=== PATIENT | female | born 1965 | race Caucasian/White ===

== ENCOUNTER 2023-05-02 11:08 | Outpatient (OUT) | payer OTHER, SELFPAY ==
[2023-05-02 12:27] LABS: Basophils Absolute Auto 0.1 10^3/uL (0.0-0.1); Basophils Percent Auto 0.8 % (0.2-2.0); Eosinophils Absolute Auto 0.1 10^3/uL (0.0-0.7); Eosinophils Percent Auto 1.4 % (0.9-7.0); Hematocrit 42.1 % (36.0-48.0); Hemoglobin 13.7 g/dL (12.0-16.0); Immature Granulocytes Abs Auto 0.05 10^3/uL (0.00-0.03); Immature Granulocytes Pct Auto 0.7 % (0.0-0.5); Lymphocytes Absolute Auto 2.4 10^3/uL (1.2-3.8); Lymphocytes Percent Auto 33.5 % (20.5-60.0); Mean Corpuscular HGB Conc 32.5 g/dL (29.9-35.2); Mean Corpuscular Hemoglobin 32.9 pg (26.7-34.0); Mean Platelet Volume 10.5 fL (9.5-13.5); Monocytes Absolute Auto 0.6 10^3/uL (0.3-0.8); Monocytes Percent Auto 7.6 % (1.7-12.0); Neutrophils Absolute Auto 4.1 10^3/uL (1.4-6.5); Platelet Count 332 10^3/uL (150-450); Red Blood Count 4.17 10^6/uL (4.20-5.40); Red Cell Distribution Width 12.2 % (11.0-15.0); White Blood Count 7.3 10^3/uL (4.0-11.0)
[2023-05-02 13:15] LABS: Anion Gap 14.1; Carbon Dioxide 25.8 mmol/L (21.0-32.0); Chloride 102 mmol/L (98-107); Potassium 3.9 mmol/L (3.5-5.1); Sodium 138 mmol/L (136-145)
[2023-05-02 13:47] LABS: Alanine Aminotransferase 22 U/L (14-59); Albumin Globulin Ratio 0.9; Albumin Level 3.6 g/dL (3.4-5.0); Alkaline Phosphatase 71 U/L (46-116); Aspartate Amino Transferase 16 U/L (15-37); BUN Creatinine Ratio 13.8; Bilirubin Total 0.3 mg/dL (0.2-1.0); Calcium 9.2 mg/dL (8.5-10.1); Estimated GFR (African America >60 (>=60); Estimated GFR (Non-African Ame >60 (>=60); Globulin 3.8 g/dL; Glucose 89 mg/dL (74-106); Thyroid Stimulating Hormone 2.246 uIU/mL (0.358-3.740); Total Protein 7.4 g/dL (6.4-8.2)
[2023-05-02 14:21] LABS: Estimated Average Glucose 100 mg/dL; Glycohemoglobin A1C 5.1 % (4.5-6.2)
[2023-05-03 11:09] LABS: Insulin 11.5 uIU/mL (2.6-24.9)
== END 2023-05-02 11:09 | disposition home or self-care (01) ==
LOC: LAB 11:13
PROVIDERS: PCP Family Medicine; Visit Provider Family Medicine
DX: R82.90 Unspecified abnormal findings in urine (principal); K21.9 Gastro-esophageal reflux disease without esophagitis; R53.83 Other fatigue; R73.09 Other abnormal glucose; D64.9 Anemia, unspecified; E55.9 Vitamin D deficiency, unspecified
CPT/HCPCS: 36415; 80053; 82306; 83036; 83525; 83540; 84436; 84443; 84481; 85025

== ENCOUNTER 2024-05-10 07:40 | Outpatient (OUT) | payer OTHER, SELFPAY ==
[2024-05-10 08:08] LABS: Basophils Absolute Auto 0.1 10^3/uL (0.0-0.1); Basophils Percent Auto 0.9 % (0.2-2.0); Eosinophils Percent Auto 0.4 % (0.9-7.0); Hematocrit 45.7 % (36.0-48.0); Hemoglobin 15.3 g/dL (12.0-16.0); Immature Granulocytes Abs Auto 0.03 10^3/uL (0.00-0.03); Immature Granulocytes Pct Auto 0.3 % (0.0-0.5); Lymphocytes Absolute Auto 2.9 10^3/uL (1.2-3.8); Lymphocytes Percent Auto 31.6 % (20.5-60.0); Mean Corpuscular HGB Conc 33.5 g/dL (29.9-35.2); Mean Corpuscular Hemoglobin 32.8 pg (26.7-34.0); Mean Corpuscular Volume 97.9 fL (81.0-99.0); Mean Platelet Volume 9.9 fL (9.5-13.5); Monocytes Absolute Auto 0.6 10^3/uL (0.3-0.8); Monocytes Percent Auto 6.6 % (1.7-12.0); Neutrophils Absolute Auto 5.4 10^3/uL (1.4-6.5); Neutrophils Percent Auto 60.2 % (43.0-75.0); Platelet Count 396 10^3/uL (150-450); Red Blood Count 4.67 10^6/uL (4.20-5.40)
[2024-05-10 08:22] LABS: Estimated Average Glucose 100 mg/dL; Glycohemoglobin A1C 5.1 % (4.5-6.2)
[2024-05-10 08:49] LABS: Alanine Aminotransferase 31 U/L (14-59); Albumin Level 4.3 g/dL (3.4-5.0); Alkaline Phosphatase 89 U/L (46-116); Anion Gap 13.6; Aspartate Amino Transferase 12 U/L (15-37); BUN Creatinine Ratio 14.9; Bilirubin Total 0.9 mg/dL (0.2-1.0); Calcium 9.7 mg/dL (8.5-10.1); Carbon Dioxide 27.6 mmol/L (21.0-32.0); Chloride 102 mmol/L (98-107); Chol HDL Ratio 1.9; Cholesterol 201 mg/dL (<=200); Estimated GFR (African America >60 (>=60 mL/min/1.73m^2); Estimated GFR (Non-African Ame 56 (>=60 mL/min/1.73m^2); Globulin 4.1 g/dL; Glucose 98 mg/dL (74-106); HDL Cholesterol 104 mg/dL (40-60); Potassium 4.2 mmol/L (3.5-5.1); Sodium 139 mmol/L (136-145); Total Protein 8.4 g/dL (6.4-8.2); Triglycerides 89 mg/dL (<=150); VLDL CHOLESTEROL 17.8 mg/dL
[2024-05-10 08:56] LABS: Free T3 2.64 pg/mL (2.18-3.98); Thyroid Stimulating Hormone 2.656 uIU/mL (0.358-3.740)
[2024-05-10 08:56] LABS: Bilirubin Urine NEGATIVE (NEGATIVE); Blood Urine NEGATIVE (NEGATIVE); Clarity Urine CLEAR (CLEAR); Color Urine LT. YELLOW (YELLOW); Glucose Urine UA NEGATIVE (NEGATIVE); Ketones Urine NEGATIVE (NEGATIVE); Leukocyte Esterase Urine NEGATIVE (NEGATIVE); Nitrite Urine POSITIVE (NEGATIVE); Protein Urine NEGATIVE (NEG/TRACE); Urobilinogen Urine 0.2 EU/dL (0.2-1.0)
[2024-05-10 09:03] LABS: Bacteria Urine LARGE #/HPF (NONE SEEN); Cast Seen? NONE SEEN #/LPF (NONE SEEN); Crystals Seen? None Seen #/HPF (None Seen); Mucus Urine NONE SEEN (NONE SEEN); RBC Urine NONE SEEN #/HPF (0-2); Squamous Epithelial Cell Urine FEW #/LPF (NONE/RARE); Urine Culture Indicated ALREADY ORDERED
[2024-05-11 13:11] LABS: Insulin 10.4 uIU/mL (2.6-24.9)
== END 2024-05-10 07:41 | disposition home or self-care (01) ==
LOC: LAB 07:42
PROVIDERS: PCP Family Medicine; Visit Provider Family Medicine
DX: Z00.00 Encounter for general adult medical examination without abnormal findings (principal); R30.0 Dysuria
CPT/HCPCS: 36415; 80053; 80061; 81001; 83036; 83525; 84270; 84436; 84443; 84480; 84481; 85025; 87086; 87150; 87186

== ENCOUNTER 2025-01-01 12:23 | Outpatient (OUT) | payer OTHER, SELFPAY ==
--- OUTSIDE RECORDS SUMMARY | 2024-06-19 07:45 | XMS_ITS ---
Author Organization [facility] in [place] Address [address] [place] [address] Care Team Providers Care Business Employment Specialist Name Role Phone Naman Vilchis Primary Care Provider [phone] REASON FOR VISIT sinus congestion Medications Medication SIG (Take, Route, Fr equency, Duration) Notes Start Date End Date Status Cefdinir 300 MG take 2 capsules Oral ly daily for 10 days 05/10/2024 Active Encounters Encounter Location Date Provider Diagnosis [facility] [address] [place] [address] 06/19/2024 Naman Vilchis Plan Of Treatment Medication Medication Name Sig Start Date Stop Date Notes Cefdinir 300 MG take 2 capsules Orally daily for 10 days 1 Progress Notes * Archana LORENZO LDOB: [birth year] (59 yo F)Acc No.[id number]:06/19/2024 Patient: Archana KIM :1965 A ge:59 Y S ex:Female Address:[address] [place] [address] [place], [address] * Refills Refill Cefdinir Capsule, 300 MG, Orally, 20, take 2 capsules, daily, 10 days, Refills=0 * true * Date: Generated for Printi ng/Faxing/eTransmitting on: 0 01/01/2025 12:26 PM EDT
--- OUTSIDE RECORDS SUMMARY | 2025-01-01 07:30 | XMS_ITS ---
Author Organization [facility] in [place] Address [address] [place] [address] Care Team Providers Care Precipitation Equipment Tender Name Role Phone Naman Vilchis Primary Care Provider [phone] Allergies Allergen (clinical drug ingredient) Drug/Non Drug Allergy documented on EMR Reaction Allergy Type Onset Date Status vilazodone Viibryd Mental Fog Drug Allergy Activ e REASON FOR VISIT back pain- upper back between shoulder blades- no jaw pain, no chest pain, no tingling arm sensation, Patient states had a hump in her back, has been bothering her for 3-4 months, Did go to chiropractor and got an adjustment so not sure if the pain is worse today since then, Discuss weight management Medications Medication SIG (Take, Route, Frequency, Duration) Notes Start Date End Date Status Pantoprazole Sodium 40 MG 1 tablet Orall y Once a day for 30 days 11/28/2022 Active Linzess 72 MCG 1 capsule at least 3 0 minutes before the first meal of the day on an empty stomach Orally Once a day PRN Active tiZANidine HCl 4 MG 2 tablets Orally at bedtime for 15 PRN 01/16/2023 Active Adipex-P 37.5 MG 1 tablet before kalpana kfast Orally Once a day 01/01/2025 Active tiZANidine HCl 4 MG 2 tablet at bedtime as needed Orally Once a day for 30 days 01/01/2025 Active Levsin 0.125 MG 1 tablet as needed O rally every 4 hrs PRN Active Diclofenac Sodium 75 MG take 1 tablet Or ally Twice a day for 30 days PRN Active Diclofenac Sodium 75 MG 1 tablet as need ed Orally Twice a day for 30 days 01/01/2025 Active Social History Tobacco Use: Social History Observation Description Date Details (start date - stop date) Never Smoker NA - NA Tobacco Use/Smoking Question Answer Notes Patient is a nonsmoker Problems Problem Type SNOMED Code ICD Code Onset Dates Problem Status W/U Status Risk Notes Problem Back pain (M54.9) Active confirmed Vital Signs Weight 194.4 lbs 01/01/2025 Height 64 in 01/01/2025 Blood pressure systolic 122 mm Hg 01/02/20 25 Blood pressure diastolic 84 mm Hg 025 BMI 33.37 kg/m2 01/01/2025 Encounters Encounter Location Date Provider Diagnosis [facility] [address] [place] [address] 01/01/2025 Naman Hoy Back pain M54.9 Assessments Encounter Date Diagnosis (ICD Code) Assessment Notes Treatment Notes Treatment Clinical Notes Section Notes 01/01/2025 Back pain (ICD-10 - M54.9) Plan Of Treatment Medication Medication Name Sig Start Date Stop Date Notes Adipex-P 37.5 MG 1 tablet before kalpana kfast Orally Once a day 01/01/2025 tiZANidine HCl 4 MG 2 tablet at bedtime as needed Orally Once a day for 30 days 01/01/2025 Diclofenac Sodium 75 MG 1 tablet as need ed Orally Twice a day for 30 days 01/01/2025 Pending Test Test Name Order Date XR thoracic spine 3V 01/01/2025 Medications Administered Medication Instructions Date of Administration Dosage Notes Ketorolac Tromethamine 01/01/2025 60 mg Orphenadrine Citrate 01/01/2025 60 mg Progress Notes * Archana LORENZO LDOB: [birth year] (59 yo F)Acc No.[id number]:01/01/2025 UNLOCKED PROGRESS NOTE Progress Note Patient: Archana KIM Provider: Shahida Vilchis ([facility])MD :1965 A ge:59 Y S ex:Female Date:01/01/2025 Address:[address] [place], [place] [id number] Check In:11:23 AM PAULCheck O ut:12:17 PM EST Subjective: * Chief Complaints: * 1 . Back pain- upper back between shoulder blades- no jaw pain, no chest pain, no tingling arm sensation. 2. Patient states had a hump in her back, has been bothering her for 3-4 months. 3. Did go to chiropractor and got an adjustment so not sure if the pain is worse today since then. 4. Discuss weight management. * HPI: D epression Screening: PHQ-2 (2015 Edition) T otal Score 0 L ittle interest or pleasure in doing things??Not at all F eeling down, depressed, or hopeless? N ot at all Fees like just slept wrong has farhat calderon n back an feels like that is some worse more in uper back - hurt to take a deep breatho - chiro helped a bid. * Medical History: I rritable bowel syndrome without diarrhea, Neck pain, Knee pain, right, GERD (gastroesophageal reflux disease), Vitamin D deficiency, Carpal tunnel syndrome, Hot flashes, TRIPP (obstructive sleep apnea), Sacral disorder, Osteoarthritis, Migraine headache, Anxiety and depression. * Surgical History: G allbladder , Appendectomy , Partial Hysterectomy , Rotator Cuff Repair, right , Bilat Thoracic outlet , Arthoscopy bilat knees x2 , Arthroplasty . * Hospitalization/Major Diagno stic Procedure: D enies Past Hospitalization. * Family History: F ather: , Lung cancer. M other: , emphysema. B rother(s): alive. S ister(s): alive. S on(s): alive, Brain Cancer. D valencia(s): alive. 2 brother(s) , 1 sister(s) - healthy. 31 son(s) , 1 daughter(s) - healthy. . Son: 1 . * Social History: T obacco Use: T obacco Use/Smoking P atient is a n onsmoker * Medications: T aking Diclofenac Sodium 75 MG Tablet Delayed Release take 1 tablet Orally Twice a day , Notes to Pharmacist: PRN, Taking Levsin(Hyoscyamine Sulfate) 0.125 MG Tablet 1 tablet as needed Orally every 4 hrs , Notes to Pharmacist: PRN, Taking Linzess(linaCLOtide) 72 MCG Capsule 1 capsule at least 30 minutes before the first meal of the day on an empty stomach Orally Once a day , Notes to Pharmacist: PRN, Taking Pantoprazole Sodium 40 MG Tablet Delayed Release 1 tablet Orally Once a day , Taking tiZANidine HCl 4 MG Tablet 2 tablets Orally at bedtime , Notes to Pharmacist: PRN, Discontinued Cefdinir 300 MG Capsule take 2 capsules Orally daily , Discontinued Ciprofloxacin-dexAMETHasone 0.3-0.1 % Suspension 1-2 drops into affected ear Otic once a day , Discontinued Pyridium(Phenazopyridine HCl) 200 MG Tablet 1 tablet after meals Orally Three times a day , Medication List reviewed and reconciled with the patient * Allergies: V iibryd: Mental Fog - Side Effects. Objective: * Vitals: W t:194.4lbs, Ht: 64 in, BP:122/84mm Hg, BMI:33.37Index, Ht-cm: 162.56 cm, Wt-k.18 kg. * Examination: A bdomen Exam:: THoracid:m s ome R trap tendenrss - some midline some swelling in low R thoracic area Did well with adipex. Assessment: * Assessment: 1. B ack pain - M54.9 (Primary) Plan: * Treatment: * Therapeutic Injections: Ketorolac Tromethamine : 60 mg (Route: Intramuscular) given by Chani Dawn SA on right gluteus (Back pain) Orphenadrine Citrate : 60 mg (Route: Intramuscular) given by Chani Dawn SA on right gluteus (Back pain) * Procedure Codes: J 2360 NORFLEX,UP TO 60MG., J1885 TORADOL, PER 15 MG, 93329 THERAP.INJ. OF MED. INTRAMUSCULAR OR SUBCUTANEOUS * Preventive Medicine: Screenings/Counseling: B FL ACTION PLAN Above Normal BMI Follow-up D ietary management education, guidance, and counseling * * Electronic signature of Naman Vilchis MD, [id number] on 01/01/2025 at 12:26 PM EDT Sign off status: Pending Visit Status: C HK (Check Out) * Provider: Shahida Vilchis ([facility])MD Date: 01/01/2025 Generated for Catracho cee/Dina/Valentino on: 01/01/2025 12:26 PM EDT History and Physical Notes * HPI (History of Present Illness) Category Sub-Category Detail Notes Category Not es Depression Screening PHQ-2 (2015 Edition) Total Score: 0 Fees like just slept wrong has mils swelikng n back an feels like that is some worse more in uper back - hurt to take a deep breatho - chiro helped a bid Little interest or pleasure in doing thi ngs?: Not at all Feeling down, depressed, or hopeless?: N ot at all Examination Category Sub-Category Detail Notes Category Not es Abdomen Exam: THoracid:m some R trap tendenrss - some midline some swelling in low R thoracic area Did well with adipex
--- OUTSIDE RECORDS SUMMARY | 2025-01-01 12:26 | XMS_ITS | Clinical Summary ---
Author Organization [facility] Address [address] [place] [address] Care Team Providers Care Medical Authorization Specialist Name Role Phone Unavailable Primary Care Provider Unavailabl e Medications pantoprazole (ProtoNix) 40 MG EC tablet 1 (one) time each day at the same time. Active sucralfate (Carafate) 1 g tablet every 12 (twelve) hours. Active Social History Tobacco Use Types Packs/Day Years Used Date Smoking Tobacco: Never Assessed Comments Unknown Sex and Gender Information Value Date Recorded Sex Assigned at Female 12/28/2022 8:37 AM EDT Legal Sex Female 7:14 PM EDT Gender Identity Female 12/28/2022 8:37 AM EDT Sexual Orientation Straight 12/28/2022 8: 37 AM EDT Last Filed Vital Signs Vital Sign Reading Time Taken Comments Blood Pressure 125/82 03/26/2018 12:00 PM EDT Pulse - - Temperature - - Respiratory Rate - - Oxygen Saturation - - Inhaled Oxygen Concentration - - Weight 89.8 kg (198 lb) 01/26/2021 12:00 PM EDT Height 162.6 cm (5' 4 ) 01/26/2021 12:00 PM EDT Body Mass Index 33.99 01/26/2021 12:00 PM EDT Plan of Treatment Upcoming Encounters Date Type Department Care Team (Late st Contact Info) Description 01/13/2025 10:50 AM EDT Office Visit [facility] [address] [place] [address] Jo Ann Lee, [place] [address] [place] [address] Insurance [facility]
--- OUTSIDE RECORDS SUMMARY | 2025-01-01 12:26 | XMS_ITS | Patient Health Record ---
Author Organization [facility] in [place] Address [address] [place] [address] Care Team Providers Care Blending Kettle Tender Name Role Phone Naman Vilchis Primary Care Provider Allergies Allergen (clinical drug ingredient) Drug/Non Drug Allergy documented on EMR Reaction Allergy Type Onset Date Status vilazodone Viibryd Mental Fog Drug Allergy Activ e Results Component Value Reference Range Notes FREE T3 Reviewed date:05/10/2024 01:01:03 PM Interpretation: Performing Lab: Notes/Report: [facility] , Free T3 2.64 2.18-3.98 pg/mL Performing Lab: see note ML - [facility] LB INSULIN Reviewed date:05/11/2024 09:39:01 PM Interpretation: Performing Lab: Notes/Report: [facility] , Insulin 10.4 2.6-24.9 uIU/mL [address], [place] [id number] Performed at: - [facility] Cook Pickled Meat: Chuy Barr PhD, Phone: [phone] Performing Lab: see note - [facility] LB LIPID PROFILE Reviewed date:05/10/2024 01:01:03 PM Interpretation: Performing Lab: Notes/Report: [facility] , Triglycerides 89 <=150 mg/dL Cholesterol 201 <=200 mg/dL HDL Cholesterol 104 40-60 mg/dL > or =60 mg/dl - LOW CARDIOVASCULAR RISK <40 mg/dl - HIGH CARDIOVASCULAR RISK LDL Cholesterol Calculated 80.0 160-189 mg/dl HIGH <100 mg/dl OPTIMAL >190 mg/dl VERY HIGH 100-129 mg/dl NEAR OR ABOVE OPTIMAL 130-159 mg/dl BORDERLINE HIGH VLDL CHOLESTEROL 17.8 Chol HDL Ratio 1.9 4.4 - 7.1 AVERAGE RISK 7.1 - 11.0 MODERATE RISK 3.3 - 4.4 LOW RISK >11.0 HIGH RISK Performing Lab: see note ML - [facility] PROF 14(COMP METB) Reviewed date:05/10/2024 01:01:03 PM Interpretation: Performing Lab: Notes/Report: [facility] , Sodium 139 136-145 mmol/L Potassium 4.2 3.5-5.1 mmol/L Chloride 102 98-107 mmol/L Carbon Dioxide 27.6 21.0-32.0 mmol/L Anion Gap 13.6 Glucose 98 74-106 mg/dL Blood Urea Nitrogen 15.0 7.0-18.0 mg/dL Creatinine 1.01 0.55-1.02 mg/dL Estimated GFR ( Randi >60 >=60 mL/min/1.73m 2 Estimated GFR (Non- Alla 56 >=60 mL/min/1.73m 2 BUN Creatinine Ratio 14.9 Calcium 9.7 8.5-10.1 mg/dL Bilirubin Total 0.9 0.2-1.0 mg/dL Aspartate Amino Transferase 12 15-37 U/L Alanine Aminotransferase 31 14-59 U/L Alkaline Phosphatase 89 46-116 U/L Total Protein 8.4 6.4-8.2 g/dL Albumin Level 4.3 3.4-5.0 g/dL Globulin 4.1 Albumin Globulin Ratio 1.0 Performing Lab: see note ML - [facility] T4 Reviewed date:05/10/2024 01:01:03 PM Interpretation: Performing Lab: Notes/Report: [facility] , T4 Thyroxine 8.50 4.80-13.90 ug/dL Performing Lab: see note ML - [facility] LB TSH Reviewed date:05/10/2024 01:01:03 PM Interpretation: Performing Lab: Notes/Report: [facility] , Thyroid Stimulating Hormone 2.656 0.358-3.740 uIU/mL Performing Lab: see note ML - [facility] UA RANDOM W or MICROSCOPIC Reviewed date:05/10/2024 01:01:03 PM Interpretation: Performing Lab: Notes/Report: [facility] , Color Urine LT. YELLOW YELLOW Clarity Urine CLEAR CLEAR Specific [place] Urine 1.020 1.005-1.025 pH Urine 6.0 5.0-9.0 Protein Urine NEGATIVE NEG/TRACE mg/dL Glucose Urine UA NEGATIVE NEGATIVE mg/dL Bilirubin Urine NEGATIVE NEGATIVE Ketones Urine NEGATIVE NEGATIVE mg/dL Blood Urine NEGATIVE NEGATIVE Nitrite Urine POSITIVE NEGATIVE Urobilinogen Urine 0.2 0.2-1.0 EU/dL Leukocyte Esterase Urine NEGATIVE NEGATIVE WBC Urine 2-5 NONE SEEN #/HPF RBC Urine NONE SEEN 0-2 #/HPF Bacteria Urine LARGE NONE SEEN #/HPF Mucus Urine NONE SEEN NONE SEEN Squamous Epithelial Cell Urine FEW NONE/RARE #/LPF Crystals Seen? None Seen None Seen #/HPF Cast Seen? NONE SEEN NONE SEEN #/LPF Urine Culture Indicated ALREADY ORDERED Performing Lab: see note ML - [facility] LB Urine Culture, Routine Reviewed date:05/13/2024 08:11:58 PM Interpretation: Performing Lab: Notes/Report: [facility] , Urine Culture, Routine See Below For Report O:GNR Isolated Antibiotic Interpretation GINGER Status Organism: 1.1 Urine Culture, Routine Isolated Organism: Gram negative romero : O:ECMS Urine Culture, Routine *ABNORMAL* O:GNR Isolated Antibiotic Interpretation GINGER Status Organism: 1.1 Urine Culture, Routine Isolated Organism: Gram negative romero : O:ECMS Urine Culture, Routine Greater than 100, 000 colony forming units per mL O:GNR Isolated Antibiotic Interpretation GINGER Status Organism: 1.1 Urine Culture, Routine Isolated Organism: Gram negative romero : O:ECMS Urine Culture, Routine Gram negative romero O:GNR Isolated Antibiotic Interpretation GINGER Status Organism: 1.1 Urine Culture, Routine Isolated Organism: Gram negative romero : O:ECMS Urine Culture, Routine Organism: Escheri [place] coli, : O:GNR Isolated Antibiotic Interpretation GINGER Status Organism: 1.1 Urine Culture, Routine Isolated Organism: Gram negative romero : O:ECMS Urine Culture, Routine *ABNORMAL* O:GNR Isolated Antibiotic Interpretation GINGER Status Organism: 1.1 Urine Culture, Routine Isolated Organism: Gram negative romero : O:ECMS Urine Culture, Routine Greater than 100, 000 colony forming units per mL O:GNR Isolated Antibiotic Interpretation GINGER Status Organism: 1.1 Urine Culture, Routine Isolated Organism: Gram negative romero : O:ECMS Urine Culture, Routine Cefazolin <=4 ug/mL O:GNR Isolated Antibiotic Interpretation GINGER Status Organism: 1.1 Urine Culture, Routine Isolated Organism: Gram negative romero : O:ECMS Urine Culture, Routine Cefazolin with an GINGER <=16 predicts susceptibility O:GNR Isolated Antibiotic Interpretation GINGER Status Organism: 1.1 Urine Culture, Routine Isolated Organism: Gram negative romero : O:ECMS Urine Culture, Routine to the oral agent s cefaclor, cefdinir, cefpodoxime, O:GNR Isolated Antibiotic Interpretation GINGER Status Organism: 1.1 Urine Culture, Routine Isolated Organism: Gram negative romero : O:ECMS Urine Culture, Routine cefprozil, cefuro xavier, cephalexin, and loracarbef when O:GNR Isolated Antibiotic Interpretation GINGER Status Organism: 1.1 Urine Culture, Routine Isolated Organism: Gram negative romero : O:ECMS Urine Culture, Routine used for therapy of uncomplicated urinary tract O:GNR Isolated Antibiotic Interpretation GINGER Status Organism: 1.1 Urine Culture, Routine Isolated Organism: Gram negative romero : O:ECMS Urine Culture, Routine infections due to E. coli, Klebsiella pneumoniae, and O:GNR Isolated Antibiotic Interpretation GINGER Status Organism: 1.1 Urine Culture, Routine Isolated Organism: Gram negative romero : O:ECMS Urine Culture, Routine Proteus mirabilis. O:GNR Isolated Antibiotic Interpretation GINGER Status Organism: 1.1 Urine Culture, Routine Isolated Organism: Gram negative romero : O:ECMS Urine Culture, Routine Escherichia coli, O:GNR Isolated Antibiotic Interpretation GINGER Status Organism: 1.1 Urine Culture, Routine Isolated Organism: Gram negative romero : O:ECMS Urine Culture, Routine See Below For Report O:GNR Isolated Antibiotic Interpretation GINGER Status Organism: 1.1 Urine Culture, Routine Isolated Organism: Gram negative romero : O:ECMS Urine Culture, Routine See Below For Report O:GNR Isolated Antibiotic Interpretation GINGER Status Organism: 1.1 Urine Culture, Routine Isolated Organism: Gram negative romero : O:ECMS Urine Culture, Routine Performed at: [facility] O:GNR Isolated Antibiotic Interpretation GINGER Status Organism: 1.1 Urine Culture, Routine Isolated Organism: Gram negative romero : O:ECMS Urine Culture, Routine [address], [place] [id number] O:GNR Isolated Antibiotic Interpretation GINGER Status Organism: 1.1 Urine Culture, Routine Isolated Organism: Gram negative romero : O:ECMS Urine Culture, Routine Cook Pickled Meat: Hadley Barr PhD, Phone: [phone] O:GNR Isolated Antibiotic Interpretation GINGER Status Organism: 1.1 Urine Culture, Routine Isolated Organism: Gram negative romero : O:ECMS Urine Culture, Routine See Below For Report O:GNR Isolated Antibiotic Interpretation GINGER Status Organism: 1.1 Urine Culture, Routine Isolated Organism: Gram negative romero : O:ECMS Urine Culture, Routine AMOXICILLIN/CLAVU LANIC ACID S F O:GNR Isolated Antibiotic Interpretation GINGER Status Organism: 1.1 Urine Culture, Routine Isolated Organism: Gram negative romero : O:ECMS Urine Culture, Routine Ampicillin S F O:GNR Isolated Antibiotic Interpretation GINGER Status Organism: 1.1 Urine Culture, Routine Isolated Organism: Gram negative romero : O:ECMS Urine Culture, Routine Cefepime S F O:GNR Isolated Antibiotic Interpretation GINGER Status Organism: 1.1 Urine Culture, Routine Isolated Organism: Gram negative romero : O:ECMS Urine Culture, Routine Ceftriaxone S F O:GNR Isolated Antibiotic Interpretation GINGER Status Organism: 1.1 Urine Culture, Routine Isolated Organism: Gram negative romero : O:ECMS Urine Culture, Routine Cefuroxime S F O:GNR Isolated Antibiotic Interpretation GINGER Status Organism: 1.1 Urine Culture, Routine Isolated Organism: Gram negative romero : O:ECMS Urine Culture, Routine Ciprofloxacin S F O:GNR Isolated Antibiotic Interpretation GINGER Status Organism: 1.1 Urine Culture, Routine Isolated Organism: Gram negative romero : O:ECMS Urine Culture, Routine Ertapenem S F O:GNR Isolated Antibiotic Interpretation GINGER Status Organism: 1.1 Urine Culture, Routine Isolated Organism: Gram negative romero : O:ECMS Urine Culture, Routine Gentamicin S F O:GNR Isolated Antibiotic Interpretation GINGER Status Organism: 1.1 Urine Culture, Routine Isolated Organism: Gram negative romero : O:ECMS Urine Culture, Routine Imipenem S F O:GNR Isolated Antibiotic Interpretation GINGER Status Organism: 1.1 Urine Culture, Routine Isolated Organism: Gram negative romero : O:ECMS Urine Culture, Routine Levofloxacin S F O:GNR Isolated Antibiotic Interpretation GINGER Status Organism: 1.1 Urine Culture, Routine Isolated Organism: Gram negative romero : O:ECMS Urine Culture, Routine Meropenem S F O:GNR Isolated Antibiotic Interpretation GINGER Status Organism: 1.1 Urine Culture, Routine Isolated Organism: Gram negative romero : O:ECMS Urine Culture, Routine Nitrofurantoin S F O:GNR Isolated Antibiotic Interpretation GINGER Status Organism: 1.1 Urine Culture, Routine Isolated Organism: Gram negative romero : O:ECMS Urine Culture, Routine Tetracycline S F O:GNR Isolated Antibiotic Interpretation GINGER Status Organism: 1.1 Urine Culture, Routine Isolated Organism: Gram negative romero : O:ECMS Urine Culture, Routine Tobramycin S F O:GNR Isolated Antibiotic Interpretation GINGER Status Organism: 1.1 Urine Culture, Routine Isolated Organism: Gram negative romero : O:ECMS Urine Culture, Routine Trimethoprim/Sulf ameth oxazole S F O:GNR Isolated Antibiotic Interpretation GINGER Status Organism: 1.1 Urine Culture, Routine Isolated Organism: Gram negative romero : O:ECMS Urine Culture, Routine Piperacillin/Tazo bacta m S F O:GNR Isolated Antibiotic Interpretation GINGER Status Organism: 1.1 Urine Culture, Routine Isolated Organism: Gram negative romero : O:ECMS Performing Lab: see note SEE REPORT - Retail Sales Vitamin Consultant Id information not found for OBX-specific morning news producer legend LC - [facility] LB GLYCOHEMOGLOBIN A1C Reviewed date:05/10/2024 01:01:03 PM Interpretation: Performing Lab: Notes/Report: [facility] , Glycohemoglobin A1C 5.1 4.5-6.2 % ACTION SUGGESTED ADA THERAPEUTIC TARGET < 7.0 > 7.0 ADA RECOMMENDED LIMIT 4.0 - 6.0 Estimated Average Glucose 100 Performing Lab: see note ML - [facility] LB CBC AUTO DIFF Reviewed date:05/10/2024 01:01:03 PM Interpretation: Performing Lab: Notes/Report: [facility] , White Blood Count 9.0 4.0-11.0 10 3/uL Red Blood Count 4.67 4.20-5.40 10 6/uL Hemoglobin 15.3 12.0-16.0 g/dL Hematocrit 45.7 36.0-48.0 % Mean Corpuscular Volume 97.9 81.0-99.0 fL Mean Corpuscular Hemoglobin 32.8 26.7-34.0 pg Mean Corpuscular HGB Conc 33.5 29.9-35.2 g/dL Red Cell Distribution Width 12.0 11.0-15.0 % Platelet Count 396 150-450 10 3/uL Mean Platelet Volume 9.9 9.5-13.5 fL Neutrophils Percent Auto 60.2 43.0-75.0 % Lymphocytes Percent Auto 31.6 20.5-60.0 % Monocytes Percent Auto 6.6 1.7-12.0 % Eosinophils Percent Auto 0.4 0.9-7.0 % Basophils Percent Auto 0.9 0.2-2.0 % Immature Granulocytes Pct Auto 0.3 0.0-0.5 % Neutrophils Absolute Auto 5.4 1.4-6.5 10 3/uL Lymphocytes Absolute Auto 2.9 1.2-3.8 10 3/uL Monocytes Absolute Auto 0.6 0.3-0.8 10 3/uL Eosinophils Absolute Auto 0.0 0.0-0.7 10 3/uL Basophils Absolute Auto 0.1 0.0-0.1 10 3/uL Immature Granulocytes Abs Auto 0.03 0.00-0.03 10 3/uL Performing Lab: see note ML - [facility] LB Reason For Referral No Information Medications Medication SIG (Take, Route, Frequency, Duration) [...] at bedtime for 15 PRN 01/16/2023 Active tiZANidine HCl 4 MG 2 tablet at bedtime as needed Orally Once a day for 30 days 01/01/2025 Active Diclofenac Sodium 75 MG 1 tablet as need ed Orally Twice a day for 30 days 01/01/2025 Active Levsin 0.125 MG 1 tablet as needed O rally every 4 hrs PRN Active Diclofenac Sodium 75 MG take 1 tablet Or ally Twice a day for 30 days PRN Active Adipex-P 37.5 MG 1 tablet before kalpana kfast Orally Once a day 01/01/2025 Active Social History Tobacco Use: Social History Observation Description Date Details (start date - stop date) Never Smoker NA - NA Tobacco Use/Smoking Question Answer Notes Patient is a nonsmoker Alcohol Screen (Audit-C) Question Answer Notes Did you have a drink containing alcohol in the p ast year? No Points 0 Interpretation Negative Problems Problem Type SNOMED Code ICD Code Onset Dates Problem Status W/U Status Risk Notes Problem 26907494 Vitamin D deficiency, unspecified (E55.9) Active confirmed Problem Irritable bowel syndrome (29974892) Irritable bowel syndrome without diarrhea (K58.9) Active confirmed Problem [id number] Unspecified abnormal findings in urine (R82.90) Active confirmed Problem Fatigue (24705744) Fatigue (R53.83) Active conf irmed Problem Migraine variant with headache (disorder) (244321847) Migraine headache (G43.909) Active confirmed Problem Osteoarthritis (126513947) Osteoarthritis (M19.90) Active confirmed Problem Gastroesophageal reflux disease (963750044) GERD (gastroesophageal reflux disease) (K21.9) Active confirmed Problem Cervical radiculopathy (46819381) Cervical radiculopathy (M54.12) Active confirmed Problem Carpal tunnel syndrome (80739013) Carpal tunnel syndrome (G56.00) Active confirmed Problem Neck pain (95610905) Neck pain (M54.2) Active confirmed Problem Obstructive sleep apnea syndrome (90631057) TRIPP (obstructive sleep apnea) (G47.33) Active confirmed Problem Vitamin D deficiency (50967339) Vitamin D deficiency (E55.9) Active confirmed Problem Back pain (676064667) Back pain (M54.9) Active confirmed Problem Pain of right knee region (finding) (775594453156463) Knee pain, right (M25.561) Active confirmed Problem Well adult (731155354) Well adult (Z00.00) Active confirmed Problem Mixed anxiety and depressive disorder (703522158) Anxiety and depression (F41.9) Active confirmed Problem Hot flashes (353276960) Hot flashes (R23.2) Active confirmed Problem Sacral disorder (M53.3) Active confirmed Vital Signs Blood pressure diastolic 84 mm Hg 01/01/2025 Height 64 in 01/01/2025 Blood pressure systolic 122 mm Hg 01/01/2025 Weight 194.4 lbs 01/01/2025 BMI 33.37 kg/m2 01/01/2025 Encounters Encounter Location Date Provider Diagnosis [facility] [address] [place] [address] 05/13/2024 Naman Kaury Urinary tract infect ion N39.0 [facility] [address] [facility] [place] [address] 06/19/2024 Naman Kaury [facility] [address] [facility] [place] [address] 11/01/2024 Naman Kaury [facility] [address] [facility] [place] [address] 02/16/2024 Naman Kaury [facility] [address] [facility] [place] [address] 05/03/2024 Naman Hoy Well adult Z00.00 [facility] [address] [place] [address] 05/10/2024 Naman Hoy Dysuria R30.0 [facility] [address] [facility] [place] [address] 05/10/2024 Naman Kaury [facility] [address] [facility] [place] [address] 01/01/2025 Naman Hoy Back pain M54.9 [facility] [address] [facility] [place] [address] 05/02/2024 Naman Hoy Well adult Z00.00 an d Osteoarthritis of right patellofemoral joint M17.11 Assessments Encounter Date Diagnosis (ICD Code) Assessment Notes Treatment Notes Treatment Clinical Notes Section Notes 05/02/2024 Well adult (ICD-10 - Z00.00) 05/02/2024 Osteoarthritis of right patellofemoral joint (ICD-10 - M17.11) 01/01/2025 Back pain (ICD-10 - M54.9) 05/03/2024 Well adult (ICD-10 - Z00.00) 05/10/2024 Dysuria (ICD-10 - R30.0) 05/13/2024 Urinary tract infection (ICD-10 - N39.0) Plan Of Treatment Pending Test Test Name Order Date CMP (COMPLETE METABOLIC PANEL) 3 CMP (COMPLETE METABOLIC PANEL) 4 UA (URINALYSIS, COMPLETE) 05/10/2024 UA (URINALYSIS, COMPLETE) 05/13/2024 CULTURE, URINE w SENSITIVITY 05/13/2024 HEMOGLOBIN A1C (GLYCO) 05/02/2024 HEMOGLOBIN A1C (GLYCO) 05/02/2023 IRON, TOTAL 05/02/2023 LIPID PANEL (CHOL/TRIG/HDL/LDL) 05/02/20 24 CBC WITH DIFF 05/02/2024 CBC WITH DIFF 05/02/2023 UA (URINALYSIS, MICRO ONLY) 05/10/2024 VITAMIN D, 25 LEVEL (TOTAL) 05/02/2023 MAMM Mammograms CAD 05/02/2023 Insulin Level 05/02/2023 Insulin Level 05/02/2024 CULTURE URINE 05/10/2024 THYROID PANEL (T4/TSH/FREE T3) 4 THYROID PANEL (T4/TSH/FREE T3) 3 MM screening mammo BI 05/02/2024 XR thoracic spine 3V 01/01/2025 URINALYSIS MICROSCOPIC 05/13/2024 Insurance Providers Payer Name Payer Address Payer Phone Subscriber Number Group Number Insured Name Patient Relationship to Insured Coverage Start Date Coverage End Date [employer] [address] [address] [place] [address] [id number] Jono Lorenzo Spouse - patient is the spouse of the insured Medications Administered Medication Instructions Date of Administration Dosage Notes Kenalog-40 01/16/2023 120 mg 120 Kenalog-40 05/02/2024 120 mg 120 Ketorolac Tromethamine 01/16/2023 60 mg 60 Ketorolac Tromethamine 01/17/2023 60 mg Ketorolac Tromethamine 05/02/2024 60 mg 60 Ketorolac Tromethamine 01/01/2025 60 mg Orphenadrine Citrate 01/16/2023 60 mg 60 Orphenadrine Citrate 01/17/2023 60 mg Orphenadrine Citrate 01/01/2025 60 mg Medical (General) History Medical History History ICD Code Irritable bowel syndrome without diarrhe a K58.9 Neck pain M54.2 Knee pain, right M25.561 GERD (gastroesophageal reflux disease) K 21.9 Vitamin D deficiency E55.9 Carpal tunnel syndrome G56.00 Hot flashes R23.2 TRIPP (obstructive sleep apnea) G47.33 Sacral disorder M53.3 Osteoarthritis M19.90 Migraine headache G43.909 Anxiety and depression F41.9 Surgical History Surgery Date(Month/Year) Partial Hysterectomy Appendectomy Gallbladder Rotator Cuff Repair, right Arthroplasty Arthoscopy bilat knees x2 Bilat Thoracic outlet
--- OUTSIDE RECORDS SUMMARY | 2025-01-01 12:26 | XMS_ITS | Clinical Summary ---
Author Organization [facility] Address [address] [place], [place] [id number] Care Team Providers Care Apparel Stock Checker Name Role Phone Lake Vilchis MD Primary Care Provider [phone] Allergies No known active allergies Medications LINACLOTIDE (LINZESS ORAL)Indications:G reater trochanteric bursitis,Sciatica, Cervical spondylosis,Verteb ral basilar insufficiency Take by mouth. Active ALPRAZOLAM (XANAX ORAL)Indications:G reater trochanteric bursitis,Sciatica, Cervical spondylosis,Verteb ral basilar insufficiency Take by mouth. Active Active Problems Problem Noted Date Diagnosed Date Greater trochanteric bursitis 12/09/2013 Sciatica 12/09/2013 Cervical spondylosis 12/09/2013 Family History Medical History Relation Comments Cancer Other Relation Status Comments Other Social History Tobacco Use Types Packs/Day Years Used Date Smoking Tobacco: Never Alcohol Use Standard Drinks/Week Comments Yes 0 (1 standard drink = 0.6 oz pur e alcohol) Comments Unknown Sex and Gender Information Value Date Recorded Sex Assigned at Not on file Legal Sex Female 9:32 AM EST Gender Identity Not on file Sexual Orientation Not on file Last Filed Vital Signs Vital Sign Reading Time Taken Comments Blood Pressure 136/87 12/09/2013 11:00 AM EDT Pulse 74 12/09/2013 11:00 AM EDT Temperature - - Respiratory Rate 18 12/09/2013 11:00 AM EDT Oxygen Saturation - - Inhaled Oxygen Concentration - - Weight 83.9 kg (185 lb) 12/09/2013 11:00 AM EDT Height 163.8 cm (5' 4.5 ) 12/09/2013 11:00 AM ED T Body Mass Index 31.26 12/09/2013 11:00 AM EDT Plan of Treatment Health Maintenance Due Date Last Done Comments Anxiety Screening 1983 Depression Screening 1983 HIV Screening 1983 Hepatitis C Screening 1983 DTaP,Tdap,Td Vaccine (1 - Tdap) 1984 Cervical Cancer Screening [address] Colonography 2010 Cologuard (FIT-DNA) 2010 Colonoscopy 2010 Colorectal Cancer Screening 2010 Diabetes Screening 2010 Fecal Occult Blood 2010 Lipid Screening 2010 Sigmoidoscopy 2010 Pneumococcal Vaccine: 50+ (1 of 1 - PCV) 2015 Shingrix Vaccine (1 of 2) 2015 Covid-19 Vaccine (1 - season) 2024 Influenza Vaccine (Season Ended) 2025 Care Teams Apparel Stock Checker Relationship Specialty Start Date End Date Lake Vilchis MD [address] [place] [address] PCP - General 11/07/00
--- OUTSIDE RECORDS SUMMARY | 2025-01-01 12:26 | XMS_ITS | Encounter Summary ---
Author Organization [facility] Address [address] [place] [address] Care Team Providers Care Cream Beater Name Role Phone Lake Vilchis MD Primary Care Provider [phone] Source Comments In the event this information is protected by the Federal Confidentiality of Alcohol and Drug AbusePatient Records regulations: The Federal rules restrict any use of the information to criminally investigate or prosecute any alcohol or drug abuse patient.[facility] Encounter Details Date Type Department Care Team (Latest Contact Info) Description 12/27/2002 Prob Sum Review Provider, [facility] Social History Tobacco Use Types Packs/Day Years Used Date Smoking Tobacco: Never Assessed Comments Unknown Sex and Gender Information Value Date Recorded Sex Assigned at Not on file Legal Sex Female 9:32 AM EST Gender Identity Not on file Sexual Orientation Not on file documented as of this encounter Plan of Treatment Not on file documented as of this encounter Visit Diagnoses Not on filedocumented in this encounter Care Teams Cream Beater Relationship Specialty Start Date End Date Lake Vilchis MD [address] [place] [address] PCP - General 11/07/00 documented as of this encounter
--- OUTSIDE RECORDS SUMMARY | 2025-01-01 12:29 | XMS_ITS | CCD ---
Author Organization [facility] Care Team Providers Care Respiratory Care Instructor Name Role Phone Jono MORIN Attending Unavailable Eleanor Gongora Referring UnavailQuoc Lawson, DR WEBSTER Primary Care Unavailable JOSE ANTONIO ., FAUSTINA Attending Unavailable JOSE ANTONIO ., FAUSTINA Consulting Unavailable JOSE ANTONIO ., FAUSTINA Admitting Unavailable SRIRAM READ Consulting Unavailable HOY ., DR WEBSTER Consulting Unavailable HOY ., DR WEBSTER Primary Care Unavailable KATTY ., DR WEBSTER Admitting Unavailable GIOVANY ., DR WEBSTER Attending Unavailable Allergies Allergy Classification Reported Allergen(s) Allergy Type Date of Onset Reaction(s) Facility (2 sources) vilazodone; Translations: [Viibryd] Drug Allergy 6 [facility] Repository (1 source) No Known Medication Allergies; Translations: [No Known Medication Allergies] Propensity to adverse reactions (disorder) [facility] Repository (1 source) Ondansetron Drug Allergy 7 [facility] Repository Problems Problem Classification Problem Date Documented Da te Episodic/Chronic Anxiety disorders (1 source) Anxiety disorder, unspecified; Translations: [ANXIETY DISORDER UNSPECIFIED] Onset: 10-27-2022 Chronic Cardiac dysrhythmias (1 source) Ventricular premature depolarization; Translations: [VENTRICULR PREMATURE DEPOLARIZATION] Onset: 10-27-2022 Chronic Cardiac dysrhythmias (1 source) Palpitations; Translations: [PALPITATIONS] Onset: 10-27-2022 Episodic Conditions associated with dizziness or vertigo (4 sources) Dizziness and giddiness; Translations: [DIZZINESS AND GIDDINESS] Onset: 10-25-2022 Episodic Esophageal disorders (1 source) Gastro-esophageal reflux disease without esophagitis; Translations: [GERD WITHOUT ESOPHAGITIS] Onset: 10-27-2022 Chronic Heart valve disorders (1 source) Other abnormalities of heart beat; Translations: [OTHER ABNORMALITIES OF HEART BEAT] Onset: 10-27-2022 Episodic Mood disorders (1 source) Mood disorders; Translations: [DEPRESSION UNSPECIFIED] Onset: 10-27-2022 Other aftercare (1 source) 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; Translations: [OTH INTERMEDIATE CURRENT DRUG THERAPY] Onset: 10-27-2022 Episodic Other connective tissue disease (1 source) Arthrodesis status; Translations: [ARTHRODESIS STATUS] Onset: 10-27-2022 Episodic Other gastrointestinal disorders (1 source) Irritable bowel syndrome without diarrhea; Translations: [IRRITABLE BOWEL SYND W/O DIARRHEA] Onset: 10-27-2022 Chronic Other lower respiratory disease (1 source) Shortness of breath; Translations: [SHORTNESS OF BREATH] Onset: 10-27-2022 Episodic Residual codes; unclassified (1 source) Sleep apnea, unspecified; Translations: [SLEEP APNEA UNSPECIFIED] Onset: 10-27-2022 Chronic Residual codes; unclassified (1 source) Acquired absence of other specified parts of digestive tract; Translations: [ACQ ABSENCE OTH PART DIGESTV TRACT] Onset: 10-27-2022 Episodic Residual codes; unclassified (1 source) Acquired absence of both cervix and uterus; Translations: [ACQUIRED ABSENCE BOTH CERVIX AND UTERUS] Onset: 10-27-2022 Episodic Results Test Name Value Interpretation Reference Range Facility BNPon 10-25-2022 Natriuretic peptide B (Bld) [Mass/Vol] 114.0 pg/mL Normal <=900.0 [facility] Comment on above: Performed By: #### D DIM #### [facility] [address] [place] [address] Dr. Stefany Andrade CARDIAC EUN ADMITon 023 CK [Catalytic activity/Vol] 66 U/L Normal 26-192 [facility] Comment on above: Performed By: #### D DIM #### [facility] [address] [address] [address] Stefany Andrade CK.MB [Mass/Vol] 1.19 ng/mL Normal <=3.60 [facility] Comment on above: Performed By: #### D DIM #### [facility] [address] [place] [address] Dr. Stefany Andrade HSTROP 4.5 pg/mL Normal 4.0-51.3 [facility] Comment on above: Result Comment: CUT- OFF POINTS HAVE BEEN ESTABLISHED BASED ON THE FOURTH UNIVERSAL DEFINITIONS OF MYOCARDIAL INFARCTION. THE UPPER REFERENCE LIMIT (URL) OF TROPONIN, DEFINED THE 99TH PERCENTILE OF cTnI DISTRIBUTION IN A REFERENCE POPULATION, HAS BEEN CONFIRMED THE DECISION THRESHOLD FOR [place] DIAGNOSIS. Performed By: #### D DIM #### [facility] [address] [place] [address] Dr. Stefany Andrade BRITTANY 34 ng/mL Normal 9-82 [facility] Comment on above: Performed By: #### D DIM #### [facility] [address] [place] [address] Dr. Stefany Andrade CBC AUTO DIFFon 10-25-2022 BASO # 0.0 103/ul Normal 0.0-0.1 [facility] Comment on above: Performed By: #### D DIM #### [facility] [address] [place] [address] Dr. Stefany Andrade Basophils/100 WBC (Bld) 0.5 % Normal 0.2-2.0 [facility] Comment on above: Performed By: #### D DIM #### [facility] [address] [place] [address] Dr. Stefany Andrade EO # 0.2 103/ul Normal 0.0-0.7 [facility] Comment on above: Performed By: #### D DIM #### [facility] [address] [place] [address] Dr. Stefany Andrade Eosinophils/100 WBC (Bld) 2.7 % Normal 0.9-7.0 [facility] Comment on above: Performed By: #### D DIM #### [facility] [address] [place] [address] Dr. Stefany Andrade Erythrocyte distribution width (RBC) [Ratio] 12.1 % Normal 11.0-15.0 [facility] Comment on above: Performed By: #### D DIM #### [facility] [address] [place] [address] Dr. Stefany Andrade Hematocrit (Bld) [Volume fraction] 38.7 % Normal 36.0-48.0 [facility] Comment on above: Performed By: #### D DIM #### [facility] [address] [address] [address] Stefany Andrade Hemoglobin (Bld) [Mass/Vol] 13.2 g/dL Normal 12.0-16.0 [facility] Comment on above: Performed By: #### D DIM #### [facility] [address] [address] [address] Stefany Andrade IG # 0.04 10e3/ul Critically high 0.00-0.03 [facility] Comment on above: Performed By: #### D DIM #### [facility] [address] [address] [address] Stefany Andrade IG % 0.5 % Normal 0.0-0.5 [facility] Comment on above: Performed By: #### D DIM #### [facility] [address] [place] [address] Dr. Stefany Andrade LYMPH # 2.9 103/ul Normal 1.2-3.8 [facility] Comment on above: Performed By: #### D DIM #### [facility] [address] [place] [address] Dr. Stefany Andrade Lymphocytes/100 WBC (Bld) 38.6 % Normal 20.5-60.0 [facility] Comment on above: Performed By: #### D DIM #### [facility] [address] [place] [address] Dr. Stefany Andrade MANUAL DIFF REQ NO Normal [facility] Comment on above: Performed By: #### D DIM #### [facility] [address] [address] [address] Stefany Andrade MCH (RBC) [Entitic mass] 32.4 pg Normal 26.7-34.0 [facility] Comment on above: Performed By: #### D DIM #### [facility] [address] [address] [address] Stefany Andrade MCHC (RBC) [Mass/Vol] 34.1 g/dL Normal 29.9-35.2 [facility] Comment on above: Performed By: #### D DIM #### [facility] [address] [address] [address] Stefany Andrade MCV (RBC) [Entitic vol] 95.1 fL Normal 81.0-99.0 [facility] Comment on above: Performed By: #### D DIM #### [facility] [address] [address] [address] Stefany Andrade MONO # 0.5 103/ul Normal 0.3-0.8 [facility] Comment on above: Performed By: #### D DIM #### [facility] [address] [address] [address] Stefany Andrade Monocytes/100 WBC (Bld) 7.1 % Normal 1.7-12.0 [facility] Comment on above: Performed By: #### D DIM #### [facility] [address] [address] [address] Stefany Andrade NEUT # 3.8 103/ul Normal 1.4-6.5 [facility] Comment on above: Performed By: #### D DIM #### [facility] [address] [address] [address] Stefany Andrade Neutrophils/100 WBC (Bld) 50.6 % Normal 43.0-75.0 [facility] Comment on above: Performed By: #### D DIM #### [facility] [address] [address] [address] Stefany Andrade Platelet mean volume (Bld) [Entitic vol] 10.4 fL Normal 9.5-13.5 [facility] Comment on above: Performed By: #### D DIM #### [facility] [address] [address] [address] Stefany Andrade PLT 319 103/ul Normal 150-450 [facility] Comment on above: Performed By: #### D DIM #### [facility] [address] [address] [address] Setfany Andrade RBC 4.07 106/ul Critically low 4.20-5.40 [facility] Comment on above: Performed By: #### D DIM #### [facility] [address] [place] [address] Dr. Stefany Andrade WBC 7.5 103/ul Normal 4.0-11.0 [facility] Comment on above: Performed By: #### D DIM #### [facility] [address] [place] [address] Dr. Stefany Andrade D-DIMERon 10-25-2022 D-DIMER 0.41 mg/L FEU Normal <=0.59 [facility] Comment on above: Performed By: #### D DIM #### [facility] [address] [place] [address] Dr. Stefany Andrade D-DIMER COMMENTS SEE BELOW Normal [facility] Comment on above: Result Comment: Incr eases in D-Dimer concentration observed with thromboembolic events can be variable due to localization, size, and age of the thrombus. Therefore, a thromboembolic event cannot be diagnosed with certainty on the basis of the reference range. D-Dimers may also be elevated for a variety of disorders including: advanced age, , coronary disease, cancer, liver disease, infection, inflammation, hematoma, DIC, trauma, post-surgery, diabetes, thrombolytic or anticoagulant therapy, stress, and generalized hospitalization. Performed By: #### D DIM #### [facility] [address] [place] [address] Dr. Stefany Andrade ER URINE PROFILEon 3 Bilirubin Ql (U) Negative Normal NEGATIVE [facility] Comment on above: Performed By: #### E RUR #### [facility] [address] [place] [address] Dr. Stefany Andrade Clarity (U) CLEAR Normal CLEAR [facility] Comment on above: Performed By: #### E RUR #### [facility] [address] [place] [address] Dr. Stefany Andrade Color (U) LT. YELLOW Normal YELLOW [facility] Comment on above: Performed By: #### E RUR #### [facility] [address] [place] [address] Dr. Stefany Andrade ERUAHD A micrscopic examination will be performed if indicated. Normal [facility] Comment on above: Performed By: #### E RUR #### [facility] [address] [place] [address] Dr. Stefany Andrade Glucose Ql (U) Negative Normal NEGATIVE [facility] Comment on above: Performed By: #### E RUR #### [facility] [address] [place] [address] Dr. Stefany Andrade Hemoglobin Ql (U) Negative Normal NEGATIVE [facility] Comment on above: Performed By: #### E RUR #### [facility] [address] [place] [address] Dr. Stefany Andrade Ketones Ql (U) Negative Normal NEGATIVE [facility] Comment on above: Performed By: #### E RUR #### [facility] [address] [place] [address] Dr. Stefany Andrade LEUKOCYTES Negative Normal NEGATIVE [facility] Comment on above: Performed By: #### E RUR #### [facility] [address] [place] [address] Dr. Stefany Andrade Nitrite Ql (U) Negative Normal NEGATIVE [facility] Comment on above: Performed By: #### E RUR #### [facility] [address] [place] [address] Dr. Stefany Andrade pH (U) 7.0 [pH] Normal 5-9 [facility] Comment on above: Performed By: #### E RUR #### [facility] [address] [place] [address] Dr. Stefany Andrade SPEC GRAVITY 1.010 Normal 1.005-<=1.025 [facility] Comment on above: Performed By: #### E RUR #### [facility] [address] [place] [address] Dr. Stefany Andrade UA PROTEIN Negative Normal NEGATIVE/ TRACE [facility] Comment on above: Performed By: #### E RUR #### [facility] [address] [place] [address] Dr. Stefany Andrade UR MICRO IND NOT INDICATED Normal [facility] Comment on above: Result Comment: Prev iously reported as: INDICATED On 10/25/2022 21:38 By DM9 Performed By: #### E RUR #### [facility] [address] [place] [address] Dr. Stefany Andrade Urobilinogen Qn (U) 0.2 {Deangelo'U}/dL Normal 0.2 - 1. 0 [facility] Comment on above: Performed By: #### E RUR #### [facility] [address] [place] [address] Dr. Stefany Andrade PROF 14(COMP METB)on 023 Albumin [Mass/Vol] 4.0 g/dL Normal 3.4-5.0 [facility] Comment on above: Performed By: #### D DIM #### [facility] [address] [place] [address] Dr. Stefany Andrade Albumin/Globulin [Mass ratio] 1.1 {ratio} Normal [facility] Comment on above: Performed By: #### D DIM #### [facility] [address] [place] [address] Dr. Stefany Andrade ALP [Catalytic activity/Vol] 81 U/L Normal 46-116 [facility] Comment on above: Performed By: #### D DIM #### [facility] [address] [place] [address] Dr. Stefany Andrade ALT [Catalytic activity/Vol] 24 U/L Normal 14-59 [facility] Comment on above: Performed By: #### D DIM #### [facility] [address] [place] [address] Dr. Stefany Andrade Anion gap [Moles/Vol] 14.9 mmol/L Normal [facility] Comment on above: Performed By: #### D DIM #### [facility] [address] [place] [address] Dr. Stefany Andrade AST [Catalytic activity/Vol] 12 U/L Critically low 15-37 [facility] Comment on above: Performed By: #### D DIM #### [facility] [address] [place] [address] Dr. Stefany Andrade Bilirubin [Mass/Vol] 0.2 mg/dL Normal 0.2-1.0 [facility] Comment on above: Performed By: #### D DIM #### [facility] [address] [address] [address] Stefany Andrade Calcium [Mass/Vol] 9.2 mg/dL Normal 8.5-10.1 [facility] Comment on above: Performed By: #### D DIM #### [facility] [address] [address] [address] Stefany Andrade Chloride [Moles/Vol] 105 mmol/L Normal 98-107 [facility] Comment on above: Performed By: #### D DIM #### [facility] [address] [address] [address] Stefany Andrade CO2 [Moles/Vol] 26.9 mmol/L Normal 21.0-32.0 [facility] Comment on above: Performed By: #### D DIM #### [facility] [address] [address] [address] Stefany Andrade Creatinine [Mass/Vol] 0.72 mg/dL Normal 0.55-1.02 [facility] Comment on above: Performed By: #### D DIM #### [facility] [address] [address] [address] Stefany Andrade EGFR-AF BERMUDIAN >60 Normal >=60 [facility] Comment on above: Performed By: #### D DIM #### [facility] [address] [place] [address] Dr. Stefany Andrade EGFR-NON AF BERMUDIAN >60 Normal >=60 [facility] Comment on above: Performed By: #### D DIM #### [facility] [address] [address] [address] Stefany Andrade Globulin (S) [Mass/Vol] 3.5 g/dL Normal [facility] Comment on above: Performed By: #### D DIM #### [facility] [address] [place] [address] Dr. Stefany Andrade Glucose [Mass/Vol] 103 mg/dL Normal 74-106 [facility] Comment on above: Performed By: #### D DIM #### [facility] [address] [address] [address] Stefany Andrade Potassium [Moles/Vol] 3.8 mmol/L Normal 3.5-5.1 [facility] Comment on above: Performed By: #### D DIM #### [facility] [address] [address] [address] Stefany Andrade Protein [Mass/Vol] 7.5 g/dL Normal 6.4-8.2 [facility] Comment on above: Performed By: #### D DIM #### [facility] [address] [address] [address] Stefany Andrade Sodium [Moles/Vol] 143 mmol/L Normal 136-145 [facility] Comment on above: Performed By: #### D DIM #### [facility] [address] [address] [address] Stefany Andrade Urea nitrogen [Mass/Vol] 13.0 mg/dL Normal 7.0-18.0 [facility] Comment on above: Performed By: #### D DIM #### [facility] [address] [place] [address] Dr. Stefany Andrade Urea nitrogen/Creatinine [Mass ratio] 18.1 mg/mg Normal [facility] Comment on above: Performed By: #### D DIM #### [facility] [address] [address] [address] Stefany Andrade PROTIMEon 10-25-2022 INR Coag (PPP) [Relative time] {INR} Normal [facility] Comment on above: Performed By: #### D DIM #### [facility] [address] [place] [address] Dr. Stefany Andrade INR GUIDELINES SEE BELOW Normal [facility] Comment on above: Result Comment: DEE RED INR: 2.0 - 3.0 CONDITIONS NOT LISTED BELOW 2.5 - 3.5 FOR PROSTHETIC HEART VALVE REPLACEMENT 2.5 - 3.5 RECURRENT THROMBOSIS Performed By: #### D DIM #### [facility] [address] [place] [address] Dr. Stefany Andrade PT Coag (PPP) [Time] 9.6 s Normal 9.0-11.6 [facility] Comment on above: Performed By: #### D DIM #### [facility] [address] [place] [address] Dr. Stefany Andrade PTTon 10-25-2022 aPTT Coag (Bld) [Time] 30.2 s Normal 22.3-36.2 [facility] Comment on above: Performed By: #### D DIM #### [facility] [address] [place] [address] Dr. Stefany Andrade TROPONIN, HIGH SENSITIVITYon 10-25-2022 HSTROP 5.2 pg/mL Normal 4.0-51.3 [facility] Comment on above: Result Comment: CUT- OFF POINTS HAVE BEEN ESTABLISHED BASED ON THE FOURTH UNIVERSAL DEFINITIONS OF MYOCARDIAL INFARCTION. THE UPPER REFERENCE LIMIT (URL) OF TROPONIN, DEFINED THE 99TH PERCENTILE OF cTnI DISTRIBUTION IN A REFERENCE POPULATION, HAS BEEN CONFIRMED THE DECISION THRESHOLD FOR [place] DIAGNOSIS. Performed By: #### H STROPN #### [facility] [address] [place] [address] Dr. Stefany Andrade TSHon 10-25-2022 TSH 1.548 uIU/mL Normal 0.358-3.740 [facility] Comment on above: Performed By: #### T SH #### [facility] [address] [place] [address] Dr. Stefany Andrade XR CHEST 1 Von 10-25-2022 XR CHEST 1 V EXAM: XR CHEST 1 V HISTORY: Dizziness COMPARISON: None. TECHNIQUE: Single view of the chest FINDINGS: Heart size normal given technique. No focal consolidation, pleural effusion, pulmonary congestion or pneumothorax. IMPRESSION: No acute findings. Electronically authenticated by: SRIRAM READ Date: 2022-10-25 20:29 Normal [facility] INSULINon 08-27-2022 Insulin 15.1 uIU/mL Normal 2.6-24.9 [facility] Comment on above: Performed By: #### D DIM #### [facility] [address] [place] [address] Dr. Stefany Andrade CBC AUTO DIFFon 08-26-2022 BASO # 0.1 103/ul Normal 0.0-0.1 [facility] Comment on above: Performed By: #### D DIM #### [facility] [address] [place] [address] Dr. Stefany Andrade Basophils/100 WBC (Bld) 0.9 % Normal 0.2-2.0 [facility] Comment on above: Performed By: #### D DIM #### [facility] [address] [place] [address] Dr. Stefany Andrade EO # 0.1 103/ul Normal 0.0-0.7 [facility] Comment on above: Performed By: #### D DIM #### [facility] [address] [place] [address] Dr. Stefany Andrade Eosinophils/100 WBC (Bld) 2.2 % Normal 0.9-7.0 [facility] Comment on above: Performed By: #### D DIM #### [facility] [address] [place] [address] Dr. Stefany Andrade Erythrocyte distribution width (RBC) [Ratio] 11.9 % Normal 11.0-15.0 [facility] Comment on above: Performed By: #### D DIM #### [facility] [address] [place] [address] Dr. Stefany Andrade Hematocrit (Bld) [Volume fraction] 46.4 % Normal 36.0-48.0 [facility] Comment on above: Performed By: #### D DIM #### [facility] [address] [place] [address] Dr. Stefany Andrade Hemoglobin (Bld) [Mass/Vol] 14.6 g/dL Normal 12.0-16.0 [facility] Comment on above: Performed By: #### D DIM #### [facility] [address] [place] [address] Dr. Stefany Andrade IG # 0.01 10e3/ul Normal 0.00-0.03 [facility] Comment on above: Performed By: #### D DIM #### [facility] [address] [place] [address] Dr. Stefany Andrade IG % 0.2 % Normal 0.0-0.5 [facility] Comment on above: Performed By: #### D DIM #### [facility] [address] [address] [address] Stefany Andrade LYMPH # 2.3 103/ul Normal 1.2-3.8 [facility] Comment on above: Performed By: #### D DIM #### [facility] [address] [address] [address] Stefany Andrade Lymphocytes/100 WBC (Bld) 41.7 % Normal 20.5-60.0 [facility] Comment on above: Performed By: #### D DIM #### [facility] [address] [address] [address] Stefany Andrade MANUAL DIFF REQ NO Normal [facility] Comment on above: Performed By: #### D DIM #### [facility] [address] [place] [address] Dr. Stefany Andrade MCH (RBC) [Entitic mass] 33.4 pg Normal 26.7-34.0 [facility] Comment on above: Performed By: #### D DIM #### [facility] [address] [place] [address] Dr. Stefany Andrade MCHC (RBC) [Mass/Vol] 31.5 g/dL Normal 29.9-35.2 [facility] Comment on above: Performed By: #### D DIM #### [facility] [address] [place] [address] Dr. Stefany Andrade MCV (RBC) [Entitic vol] 106.2 fL Critically high 81.0-99.0 [facility] Comment on above: Result Comment: Slig ht Macrocytosis Present Performed By: #### D DIM #### [facility] [address] [place] [address] Dr. Stefany Andrade MONO # 0.5 103/ul Normal 0.3-0.8 [facility] Comment on above: Performed By: #### D DIM #### [facility] [address] [place] [address] Dr. Stefany Andrade Monocytes/100 WBC (Bld) 9.4 % Normal 1.7-12.0 [facility] Comment on above: Performed By: #### D DIM #### [facility] [address] [place] [address] Dr. Stefany Andrade NEUT # 2.5 103/ul Normal 1.4-6.5 [facility] Comment on above: Performed By: #### D DIM #### [facility] [address] [place] [address] Dr. Stefany Andrade Neutrophils/100 WBC (Bld) 45.6 % Normal 43.0-75.0 [facility] Comment on above: Performed By: #### D DIM #### [facility] [address] [place] [address] Dr. Stefany Andrade Platelet mean volume (Bld) [Entitic vol] 10.5 fL Normal 9.5-13.5 [facility] Comment on above: Performed By: #### D DIM #### [facility] [address] [place] [address] Dr. Stefany Andrade PLT 351 103/ul Normal 150-450 [facility] Comment on above: Performed By: #### D DIM #### [facility] [address] [place] [address] Dr. Stefany Andrade RBC 4.37 106/ul Normal 4.20-5.40 [facility] Comment on above: Performed By: #### D DIM #### [facility] [address] [place] [address] Dr. Stefany Andrade WBC 5.4 103/ul Normal 4.0-11.0 [facility] Comment on above: Performed By: #### D DIM #### [facility] [address] [place] [address] Dr. Stefany Andrade FREE THYROXINE INDEX T7on FTI 2.92 Normal 1.30-4.50 [facility] Comment on above: Performed By: #### L IPID, T7, CMP, TSH #### [facility] [address] [place] [address] Dr. Stefany Andrade T3U 36.0 % Normal 30.0-39.0 [facility] Comment on above: Performed By: #### L IPID, T7, CMP, TSH #### [facility] [address] [address] [address] Stefany Andrade T4 [Mass/Vol] 8.10 ug/dL Normal 4.80-13.90 [facility] Comment on above: Performed By: #### L IPID, T7, CMP, TSH #### [facility] [address] [place] [address] Dr. Stefany Andrade GLYCOHEMOGLOBIN A1Con 2022 ADA RECOMMENDATION SEE BELOW Normal [facility] Comment on above: Result Comment: ADA RECOMMENDED LIMIT 4.0 - 6.0 ADA THERAPEUTIC TARGET < 7.0 ACTION SUGGESTED > 7.0 Performed By: #### A 1C #### [facility] [address] [place] [address] Dr. Stefany Andrade Glucose [Mass/Vol] 91 mg/dL Normal [facility] Comment on above: Performed By: #### A 1C #### [facility] [address] [place] [address] Dr. Stefany Andrade HbA1c (Bld) [Mass fraction] 4.8 % Normal 4.5-6.2 [facility] Comment on above: Performed By: #### A 1C #### [facility] [address] [place] [address] Dr. Stefany Andrade IRONon 08-26-2022 Iron [Mass/Vol] 43.0 ug/dL Critically low 50.0-170.0 [facility] Comment on above: Performed By: #### I TRINI #### [facility] [address] [place] [address] Dr. Stefany Andrade LIPID PROFILEon 08-26-2022 CHOL-HDL RATIO NORM SEE BELOW Normal [facility] Comment on above: Result Comment: 3.3 - 4.4 LOW RISK 4.4 - 7.1 AVERAGE RISK 7.1 - 11.0 MODERATE RISK >11.0 HIGH RISK Performed By: #### L IPID, T7, CMP, TSH #### [facility] [address] [place] [address] Dr. Stefany Andrade Cholesterol [Mass/Vol] 178 mg/dL Normal <=200 [facility] Comment on above: Performed By: #### L IPID, T7, CMP, TSH #### [facility] [address] [address] [address] Stefany Andrade Cholesterol in HDL [Mass/Vol] 78 mg/dL Critically high 40-60 [facility] Comment on above: Performed By: #### L IPID, T7, CMP, TSH #### [facility] [address] [address] [address] Stefany Andrade Cholesterol in LDL [Mass/Vol] 74.0 mg/dL Normal [facility] Comment on above: Performed By: #### L IPID, T7, CMP, TSH #### [facility] [address] [address] [address] Stefany Andrade Cholesterol.total/Ch olesterol in HDL [Mass ratio] 2.3 {ratio} Normal [facility] Comment on above: Performed By: #### L IPID, T7, CMP, TSH #### [facility] [address] [address] [address] Stefany Andrade HDL NORMAL > or = 60 mg/dl - LO W CARDIOVASCULAR RISK <40 mg/dl - HIGH CARDIOVASCULAR RISK Normal [facility] Comment on above: Performed By: #### L IPID, T7, CMP, TSH #### [facility] [address] [address] [address] Stefany Andrade LDL CALC NORMAL SEE BELOW Normal [facility] Comment on above: Result Comment: <100 mg/dl OPTIMAL 100 - 129 mg/dl NEAR OR ABOVE OPTIMAL 130 - 159 mg/dl BORDERLINE HIGH 160 - 189 mg/dl HIGH >190 mg/dl VERY HIGH Performed By: #### L IPID, T7, CMP, TSH #### [facility] [address] [address] [address] Stefany Andrade Triglyceride [Mass/Vol] 130 mg/dL Normal <=150 [facility] Comment on above: Performed By: #### L IPID, T7, CMP, TSH #### [facility] [address] [address] [address] Stefany Andrade VLDL CALC 26.0 mg/dL Normal [facility] Comment on above: Performed By: #### L IPID, T7, CMP, TSH #### [facility] [address] [address] [address] Stefany Andrade PROF 14(COMP METB)on 023 Albumin [Mass/Vol] 4.1 g/dL Normal 3.4-5.0 [facility] Comment on above: Performed By: #### L IPID, T7, CMP, TSH #### [facility] [address] [address] [address] Stefany Andrade Albumin/Globulin [Mass ratio] 1.1 {ratio} Normal [facility] Comment on above: Performed By: #### L IPID, T7, CMP, TSH #### [facility] [address] [place] [address] Dr. Stefany Andrade ALP [Catalytic activity/Vol] 63 U/L Normal 46-116 [facility] Comment on above: Performed By: #### L IPID, T7, CMP, TSH #### [facility] [address] [place] [address] Dr. Stefany Andrade ALT [Catalytic activity/Vol] 32 U/L Normal 14-59 [facility] Comment on above: Performed By: #### L IPID, T7, CMP, TSH #### [facility] [address] [place] [address] Dr. Stefany Andrade Anion gap [Moles/Vol] 15.7 mmol/L Normal [facility] Comment on above: Performed By: #### L IPID, T7, CMP, TSH #### [facility] [address] [place] [address] Dr. Stefany Andrade AST [Catalytic activity/Vol] 18 U/L Normal 15-37 [facility] Comment on above: Performed By: #### L IPID, T7, CMP, TSH #### [facility] [address] [place] [address] Dr. Stefany Andrade Bilirubin [Mass/Vol] 0.6 mg/dL Normal 0.2-1.0 [facility] Comment on above: Performed By: #### L IPID, T7, CMP, TSH #### [facility] [address] [address] [address] Stefany Andrade Calcium [Mass/Vol] 9.6 mg/dL Normal 8.5-10.1 [facility] Comment on above: Performed By: #### L IPID, T7, CMP, TSH #### [facility] [address] [address] [address] Stefany Andrade Chloride [Moles/Vol] 105 mmol/L Normal 98-107 [facility] Comment on above: Performed By: #### L IPID, T7, CMP, TSH #### [facility] [address] [address] [address] Stefany Andrade CO2 [Moles/Vol] 28.8 mmol/L Normal 21.0-32.0 [facility] Comment on above: Performed By: #### L IPID, T7, CMP, TSH #### [facility] [address] [address] [address] Stefany Andrade Creatinine [Mass/Vol] 0.79 mg/dL Normal 0.55-1.02 [facility] Comment on above: Performed By: #### L IPID, T7, CMP, TSH #### [facility] [address] [address] [address] Stefany Andrade EGFR-AF BERMUDIAN >60 Normal >=60 [facility] Comment on above: Performed By: #### L IPID, T7, CMP, TSH #### [facility] [address] [address] [address] Stefany Andrade EGFR-NON AF BERMUDIAN >60 Normal >=60 [facility] Comment on above: Performed By: #### L IPID, T7, CMP, TSH #### [facility] [address] [address] [address] Stefany Andrade Globulin (S) [Mass/Vol] 3.7 g/dL Normal [facility] Comment on above: Performed By: #### L IPID, T7, CMP, TSH #### [facility] [address] [address] [address] Stefany Andrade Glucose [Mass/Vol] 97 mg/dL Normal 74-106 [facility] Comment on above: Performed By: #### L IPID, T7, CMP, TSH #### [facility] [address] [address] [address] Stefany Andrade Potassium [Moles/Vol] 4.5 mmol/L Normal 3.5-5.1 [facility] Comment on above: Performed By: #### L IPID, T7, CMP, TSH #### [facility] [address] [place] [address] Dr. Stefany Andrade Protein [Mass/Vol] 7.8 g/dL Normal 6.4-8.2 [facility] Comment on above: Performed By: #### L IPID, T7, CMP, TSH #### [facility] [address] [place] [address] Dr. Stefany Andrade Sodium [Moles/Vol] 145 mmol/L Normal 136-145 [facility] Comment on above: Performed By: #### L IPID, T7, CMP, TSH #### [facility] [address] [place] [address] Dr. Stefany Andrade Urea nitrogen [Mass/Vol] 13.0 mg/dL Normal 7.0-18.0 [facility] Comment on above: Performed By: #### L IPID, T7, CMP, TSH #### [facility] [address] [place] [address] Dr. Stefany Andrade Urea nitrogen/Creatinine [Mass ratio] 16.5 mg/mg Normal [facility] Comment on above: Performed By: #### L IPID, T7, CMP, TSH #### [facility] [address] [place] [address] Dr. Stefany Andrade TSHon 08-26-2022 TSH 1.198 uIU/mL Normal 0.358-3.740 [facility] Comment on above: Performed By: #### L IPID, T7, CMP, TSH #### [facility] [address] [place] [address] Dr. Stefany Andrade Physician Referralon 023 Physician Referral [id number] 0CD:127 Normal [facility] History and Physicalon 03-21 History and Physical [id number]#1.00 [facility] Provider Orderson 03-21-2018 Provider Orders [id number]#1.00 [facility] Lab - AP Resultson 8 Lab - AP Results [id number]#1.00 [facility] Pathology Sendout Teston Pathology Send Out. See Report [facility] Comment on above: Order Comment: RIGHT WRIST BONE Performed By: #### 2 [id number] ####[facility] (DEFAULT)[address] [place] [address] Coding Summaryon 03-15-2018 Coding Summary CODING DATE: 03/15/2018 FINAL [facility] STATUS: Home PAYOR: Commercial Insurance APC DESCRIPTION 5113 Level 3 Musculoskeletal Procedures ADMIT DX: REASON FOR VISIT DX: M18.11 Unilateral primary osteoarthritis of first carpometacarpal joint, right hand FINAL DX: PRINCIPAL: M18.11 Unilateral primary osteoarthritis of first carpometacarpal joint, right hand SECONDARY: M19.041 Primary osteoarthritis, right hand PYMT PROC APC STAT DESCRIPTION DOCTOR NAME DATE 51627 5113 J1 Arthroplasty, Tod Giordano And 03/12/2018 interposition, intercarpal or carpometacarpal joints RT Right side (used to identify procedures performed on the right side of the body) NOTE: The code number assigned matches the documented diagnosis and / or procedure in the patient's chart. However, the narrative phrase printed from the coding software may appear abbreviated, or result in slightly different terminology. Coded By: Mahsa Norton Date Saved: 03/15/2018 10:23 am [facility] Consent Formson 03-13-2018 Consent Forms [id number]#1.00 [facility] Discharge Instructionson Discharge Instructions [id number]#1.00 [facility] Medication Managementon 02-28 Medication Management [id number]#1.00 [facility] Telemetry Stripson 8 Telemetry Strips [id number]#1.00 [facility] Anesthesia Noteon 03-12-2018 Anesthesia Note Patient: JOSE RODRIGUEZ Age: 52 years Sex: FEMALE : 65 Associated Diagnoses: None Author: Guido Tomlin MD Preoperative Information Anesthesia history: Patient history: No difficult intubation, No malignant hyperthermia. Family history: No malignant hyperthermia. Review of Systems Constitutional: Negative. Respiratory: Negative, No shortness of breath. Cardiovascular: No chest pain. Neurologic: Alert and oriented X4. Health Status Allergies: Allergic Reactions (All) Severity Not Documented Viibryd- Tachycardia. 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 Procedure history: Arthroplasty of joint of the thumb (804199381) on 12/11/2017 at 52 Years. Comments: 12/11/2017 12:12 - Thania Guzman RN left thumb Arthroscopy ([id number]). Comments: 12/01/2017 11:33 - Anne-Marie Riley RN bilat knees Hysterectomy and unilateral salpingo-oophorectomy sample ([id number]). Appendectomy (057651516). Cholecystectomy (06984296). Thoracic outlet (762365171). Comments: 12/01/2017 11:34 - Anne-Marie Riley RN bilat Fusion ([id number]). Comments: 12/01/2017 11:34 - Anne-Marie Riley RN L4&5 Rotator cuff repair (414657080). Comments: 12/01/2017 11:34 - Anne-Marie Riley RN left Colonoscopy (513183443). Esophagogastroduodenos copy (854134544). Social History Alcohol Assessment Use: Current. Beer, 1-2 times per week Tobacco Assessment Never (less than 100 in lifetime) Tobacco Use:. Substance Abuse Assessment Substance use: Never. . Social & Psychosocial Habits Alcohol 12/01/2017 Alcohol Use: Current Type: Beer Frequency: 1-2 times per week Substance Abuse 02/13/2018 Substance use: Never Tobacco 12/01/2017 Smoking tobacco use: Never (less than 100 in l . Physical Examination VS/Measurements Vital Signs (last 24 hrs) Last Charted Heart Rate Peripheral 77 bpm (MAR 12 10:00) Resp Rate 16 br/min (MAR 12:) SBP 126 mmHg (MAR 12:16) DBP H 92mmHg (MAR 12:16) SpO2 95 % (MAR 12 10:00) Weight 91.100 kg (MAR 12 10:) Height 162.56 cm (MAR 12:) Airway: Mallampati classification: II (soft palate, fauces, uvula visible). Temporomandibular joint mobility: Good. Mouth: Adequate opening, Teeth ( Within normal limits ). Neck: Full range of motion. Respiratory: Lungs are clear to auscultation. Cardiovascular: Regular rhythm. Neurologic: Alert, Oriented. Review / Management Laboratory Results Plan [employer] Anesthesiologists#(ASA ) physical status classification: Class II. Anesthetic Preoperative Plan Anesthesia: General. . Anesthetic plan, risks, benefits, and alternatives discussed with the patient and/or family. Patient verbalized understanding. [Electronically Signed on: 03/12/2018 12:02 EDT] Guido Tomlin MD [Verified on: 03/12/2018 12:02 EDT] Guido Tomlin MD Normal [facility] Inpatient Patient Summaryon 03-12-2018 Inpatient Patient Summary [address] [place] [id number] Patient Discharge Instructions Name: JOSE RODRIGUEZ : 65 Patient Address: [address] [place], [place] [address] Primary Care Provider: Name: ELEANOR ADAIR After you are discharged if you find you have any questions, please, call [phone] ext [phone] to speak to a nurse. 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 Do not drive a car. ? Do not operate machinery such as power tools, lawn mowers, drills, sewing machines, or stoves ? Avoid alcoholic beverages and drugs for allergies, nerves, or sleep ? Do not make important personal or business decisions or sign any legal documents [facility] would like to thank you for allowing us to assist you with your healthcare needs. The following includes patient education materials and information regarding your injury/illness. JOSE RODRIGUEZ has been given the following list of follow-up instructions, prescriptions, and patient education materials: Follow-up Instructions With: Address: When: RAFAELA MATIAS [address] [place] [address], [address] [place] [address] Business (1) 03/22/2018 1:30 PM With: Address: When: ELEANOR ADAIR [address] [facility] [place] [address] Business (1) Medications During the course of your visit, your medication list was updated with the most current information. The details of those changes are reflected below: Medications to Continue That Have Not Changed Other Medications acetaminophen-oxycodon e (Percocet 5/325 oral tablet) 2 tab(s) Oral Every 4 hours as needed for pain. ALPRAZolam (Xanax 0.25 mg oral tablet) 1 tab(s) Oral 3 times a day as needed for anxiety. ascorbic acid/chondroitin/gluco sa/javier (Glucosamine Chondroitin oral capsule) 1 tab(s) Oral 2 times a day. etodolac (etodolac 500 mg oral tablet) 1 tab(s) Oral 2 times a day. linaclotide (Linzess 290 mcg oral capsule) 1 tab(s) Oral every day. omega-3 polyunsaturated fatty acids (Arapahoe-3 oral capsule) 1 tab(s) Oral every day. zinc sulfate (Zinc-220 oral capsule) 1 cap Oral every day. It is important to always keep an active list of medications available so that you can share with other providers and manage your medications appropriately. As an additional courtesy, we are also providing you with your final active medications list that you can keep with you. acetaminophen-oxycodon e (Percocet 5/325 oral tablet) 2 tab(s) Oral Every 4 hours as needed for pain., home going medication, patient instructed to take 1 to 2 tabs every 4 to 6 hours as needed for pain ALPRAZolam (Xanax 0.25 mg oral tablet) 1 tab(s) Oral 3 times a day as needed for anxiety. ascorbic acid/chondroitin/gluco sa/javier (Glucosamine Chondroitin oral capsule) 1 tab(s) Oral 2 times a day. etodolac (etodolac 500 mg oral tablet) 1 tab(s) Oral 2 times a day. linaclotide (Linzess 290 mcg oral capsule) 1 tab(s) Oral every day. omega-3 polyunsaturated fatty acids (Arapahoe-3 oral capsule) 1 tab(s) Oral every day. zinc sulfate (Zinc-220 oral capsule) 1 cap Oral every day. Take only the medications listed above. Contact your doctor prior to taking any medications not on this list. Diet & Activity Patient Activity Level: Patient Diet: Regular Patient Activity Restrictions: Comment: Patient education materials, if any, will display below DR. LINDSEY POST OPERATIVE INSTRUCTIONS SURGEONS WRITTEN INSTRUTCTIONS: -Keep your hand elevated above your elbow for the first 24 hours after surgery -Wiggle your fingers frequently while awake -DO NOT lift heavy objects or head of training and development forcefully with your hand -If you have any problems or concerns, please call the office at [phone] -Follow up as scheduled Viruses or Bacteria What?s got you sick? Antibiotics only treat bacterial infections. Viral illnesses cannot be treated with antibiotics. When an antibiotic is not prescribed, ask your healthcare professional for tips on how to relieve symptoms and feel better. Usual Cause Illness Viruses Bacteria Antibiotic Needed Cold/Runny Nose NO Bronchitis/Chest Cold (in otherwise healthy children and adults) NO Whooping Cough Yes Flu NO Strep Throat Yes Sore Throat (except strep) NO Fluid in the middle ear (otitis media with effusion) NO Urinary Tract Infection Yes Antibiotics Aren?t Always the Answer www.cdc.gov/getsmart GET SMART Know When Antibiotics Work [place].S. Department of Health and Human Services Centers for Disease Control and Prevention March 2014 [facility] MAGR Intraoperative Recordon 03-12-2018 MAGR Intraoperative Record MAGR Intra-Op Record Summary Primary Physician: Tod Giordano DO Finalized Date/Time: 03/12/18 15:00:58 Pt. Name: JOSE RODRIGUEZ/Sex: 1965 FEMALE Med Rec #: [id number] Physician: Tod Giordano DO Financial #: [id number] Pt. Type: D Room/Bed: / Admit/Disch: 03/12/18 09:28:40 - Institution: Case Times MAGR Entry 1 Patient In Room Time 03/12/18 12:12:00 Out Room Time 03/12/18 14:18:00 Anesthesia Start Time 03/12/18 12:12:00 Stop Time 03/12/18 14:20:00 Surgery Start Time 03/12/18 12:35:00 Stop Time 03/12/18 14:15:00 Last Modified By: Kavitha Cast RN 03/12/18 14:42:29 Case Attendance MAGR Entry 1 Entry 2 Entry 3 Case Attendee Tod Giordano Robert M MD Sauer, Stephanie RN Andrew DO Role Performed Surgeon - Primary Anesthesiologist of Outsole Rounder Record Time In 03/12/18 12:12:00 03/12/18 12:12:00 03/12/18 12:12:00 Time Out 03/12/18 14:18:00 03/12/18 14:18:00 03/12/18 14:18:00 Procedure Arthroplasty Finger Arthroplasty Finger Arthroplasty Finger PIP(Right) PIP(Right) PIP(Right) Last Modified By: Kavitha Cast RN, Stephanie RN Sauer, Stephanie RN 03/12/18 14:44:24 03/12/18 14:44:24 03/12/18 14:44:24 Entry 4 Entry 5 Case Attendee David Houser Liberty G Regina CST Role Performed Fitness Consultant Scrub Personnel Time In 03/12/18 12:12:00 03/12/18 12:12:00 Time Out 03/12/18 14:18:00 03/12/18 14:18:00 Procedure Arthroplasty Finger Arthroplasty Finger PIP(Right) PIP(Right) Last Modified By: Kavitha Cast RN, Stephanie RN 03/12/18 14:44:24 03/12/18 14:44:24 Surgical Procedures MAGR Pre-Care Text: A.20 Verifies operative procedure, surgical site, and laterality Im.150 Develops individualized plan of care Entry 1 Procedure Arthroplasty Finger PIP Primary Procedure Yes Primary Surgeon Tod Giordano Modifiers Right Alec PARRISH Surgeon Comment RIGHT CARPAL METACARPAL Start 03/12/18 12:35:00 ARTHROPLASTY Stop 03/12/18 14:15:00 Anesthesia Type General Surgical Service Orthopedics Wound Class Clean Last Modified By: Kavitha Cast RN 03/12/18 14:44:31 Post-Care Text: O.730 The patient's care is consistent with the individualized perioperative plan of care General Case Data MAGR Pre-Care Text: A.350.1 Classifies surgical wound Entry 1 Case Information OR MAGR OR 02 Case Level Level 4 Wound Class Clean Specialty Orthopedics ASA Class 2 Diagnosis Preop Diagnosis [facility] ARTHRITIS Postop Same As Preop Yes Postop Diagnosis [facility] ARTHRITIS Last Modified By: Kavitha Cast RN 03/12/18 13:11:23 Post-Care Text: O.760 Patient receives consistent and comparable care regardless of the setting Time Out MAGR Entry 1 Time out date/time 03/12/18 12:32:00 All team members Yes have introduced themselves by name and role Surgeon, Yes Surgeon reviews Yes anesthesia, nurse critical or confirm patient, unexpected steps, site, procedure operative duration, anticipated blood loss Anesthesia team Yes Nursing team Yes reviews any reviews sterility patient-specific (including concerns indicator results) and equipment issues/concerns Antibiotic Antibiotic Yes Administration Time 12:00 prophylaxis given within the last 60 minutes Is essential Yes imaging displayed? Last Modified By: Kavitha Cast RN 03/12/18 13:12:24 Patient Positioning MAGR Pre-Care Text: A.280 Identifies baseline musculoskeletal status Im.40 Positions the patient Im.80 Applies safety devices Entry 1 Procedure Arthroplasty Finger Body Position Supine PIP(Right) Left Arm Position Extended on padded arm Right Arm Position Extended on padded arm board board Left Leg Position Extended Right Leg Position Extended Feet Uncrossed? Yes Press Points Checked Yes Positioning Device Other/See comments Outcome Met (O.80) Yes Last Modified By: Kavitha Cast RN 03/12/18 13:13:36 Post-Care Text: E.290 Evaluates musculoskeletal status O.80 Patient is free from signs and symptoms of injury related to positioning General Comments: HAND TABLE Skin Prep MAGR Pre-Care Text: A.30 Verifies allergies Im.270 Performs skin preparation Im.270.1 Implements protective measures to prevent skin and tissue injury due to chemical sources Entry 1 Skin Prep Syntegrity Prep Agents (Im.270) Chlorhexidine Gluconate Prep By Kavitha Cast RN and Alcohol Prep Area (Im.270) Hand Prep Area Details Right Skin Prep Agent Dry Yes Without Pooling Hair Removal Syntegrity Hair Removal Methods No hair removal performed Outcome Met (O.100) Yes Last Modified By: Kavitha Cast RN 03/12/18 13:13:58 Post-Care Text: E.10 Evaluates for signs and symptoms of physical injury to skin and tissue O.100 Patient is free from signs and symptoms of chemical injury Counts Verification MAGR Pre-Care Text: A.20 Verifies operative procedure, surgical site, and laterality A.20.2 Assesses the risk for unintended retained foreign body Im.20 Performs required counts Entry 1 Procedure Arthroplasty Finger PIP(Right) Counts Verification Initial Counts Items included in Sponges, Sharps Initial Counts Kavitha Cast RN, the Initial Count Performed By Dorys Hernandez Initial Count Time 03/12/18 12:20:00 Counts Verification Final Counts Items Included in Sponges, Sharps Final Count Status Correct Final Count Final Counts Kavitha Cast RN, Final Count Time 03/12/18 14:00:00 Performed By Dorys Hernandez Surgeon notified of Yes final counts status Outcome Met (O.20) Yes Last Modified By: Kavitha Cast RN 03/12/18 13:14:29 Post-Care Text: E.50 Evaluates results of the surgical count O.20 Patient is free from unintended retained foreign objects Patient Care Devices MAGR Pre-Care Text: A.200 Assesses risk for normothermia regulation A.40 Verifies presence of prosthetics or corrective devices Im.280 Implements thermoregulation measures Im.60 Uses supplies and equipment within safe parameters Entry 1 Equipment Type FORCED WARM AIR Serial ?# [id number] Equipment Setting 43 DEGREES Last Modified By: Kavitha Cast RN 03/12/18 13:15:02 Post-Care Text: E.10 Evaluates signs and symptoms of physical injury to skin and tissue O.700 Patient is free from signs and symptoms of injury caused by extraneous objects Tourniquet MAGR Pre-Care Text: A.240 Assesses baseline skin condition Im.120 Implements protective measures to prevent skin or tissue injury due to mechanical sources Entry 1 Tourniquet Type Tourniquet Cuff Size 47.5 cm Serial Number [id number] Setting 250 mmHg Placement Arm upper Padding (Im.120) Yes Placement Details Right Tourniquet Times Inflated 03/12/18 12:30:00 Deflated 03/12/18 14:05:00 Total Time 95 Applied By Tod Giordano Removed By Tod Giordano DO Outcome Met (O.60) Yes Last Modified By: Kavitha Cast RN 03/12/18 15:00:44 Post-Care Text: E.10 Evaluates for signs and symptoms of physical injury to skin and tissue O.60 Patient is free from sign and symptoms of injury caused by extraneous objects Cautery MAGR Pre-Care Text: A.240 Assesses baseline skin condition A.40 Verifies presence of prosthetics or corrective devices Im.50 Implements protective measures to prevent injury due to electrical sources Entry 1 ESU Type Electrosurgical Unit Identification [id number] Number ESU Settings Syntegrity Cut Setting 15 Coag Setting 15 Grounding Pad Details Grounding Pad Yes Verified By Kavitha Cast RN Needed? Grounding Pad Site Table Grounding Pad Within Expiration Yes Date? Outcome Met (O.10) Yes Last Modified By: Kavitha Cast RN 03/12/18 13:15:35 Post-Care Text: E.10 Evaluates for signs and symptoms of physical injury to skin and tissue O.10 Patient is free from signs and symptoms of injury related to thermal sources Cultures and Specimens MAGR Pre-Care Text: A.350 Assesses susceptibility for infection A.10 Confirms patient identity Im.320 Manages culture specimen collection Im.330 Manages specimen handling and disposition Entry 1 Cultures Ordered n/a Specimens Ordered Yes Outcome Met (O.40) Yes Last Modified By: Kavitha Cast RN 03/12/18 14:06:01 Post-Care Text: E.40 Evaluates correct processes have been performed for specimen handling and disposition O.40 Patient's specimen(s) is managed in the appropriate manner Medication Administration MAGR Pre-Care Text: A.210 Identifies physiological status Im.220 Administers prescribed medications Entry 1 Entry 2 Time Administered 03/12/18 14:05:00 03/12/18 14:05:00 Medication .5% MARCAINE NEOSPORIN Route of Admin SubQ TOP Dose Volume 6 mL By Tod Giordano James Andrew DO Andrew DO Outcome Met (O.130) Yes Yes Last Modified By: Kavitha Cast RN, Stephanie RN 03/12/18 14:45:35 03/12/18 14:45:18 Post-Care Text: E.20 Evaluates response to medications O.130 Patient receives appropriately administered medication(s) Dressing/Packing MAGR Pre-Care Text: A.350 Assesses susceptibility for infection Im.290 Administer care to wound sites Entry 1 Skin Prep Agent Yes Site Hand Removed Prior to Dressing? Site Details Right Dressing Item Details Dressing Item 4x4's, Non-adhesive Tape (Im.290) Elastic Sports Bandage (Im.290) dressing Outcome Met Yes Last Modified By: Kavitha Cast RN 03/12/18 13:22:30 Post-Care Text: E.200 Evaluates progress of wound healing O.200 Patient's wound perfusion is consistent with or improved from baseline levels Departure from OR MAGR Entry 1 Present on Depart Oxygen Via Stretcher Post-op Destination PACU Skin DFO Condition Dry Description Condition Warm Description Report Given To Romi Davidson RN Airway Maintenance Patient Status Stable Oxygen in Use? Yes Airway Device Simple mask Flow Rate 8 Last Modified By: Kavitha Cast RN 03/12/18 14:46:10 Case Comments Finalized By: Kavitha Cast RN Document Signatures Signed By: Kavitha Cast RN 03/12/18 15:00 [facility] MAGR PACU Record Summary Primary Physician: Tod Giordano DO Finalized Date/Time: 03/12/18 14:46:19 Pt. Name: JOSE RODRIGUEZO.B./Sex: 1965 FEMALE Med Rec #: [id number] Physician: Tod Giordano DO Financial #: [id number] Pt. Type: D Room/Bed: / Admit/Disch: 03/12/18 09:28:40 - Institution: PACU Case Times MAGR Entry 1 In PACU I 03/12/18 14:18:00 Discharge from PACU 03/12/18 14:44:00 I Last Modified By: Romi Davidson RN 03/12/18 14:46:12 Finalized By: Romi Davidson RN Document Signatures Signed By: Romi Davidson RN 03/12/18 14:46 [facility] MAGR Postoperative Recordon 03-12-2018 MAGR Postoperative Record MAGR Phase II Record Summary Primary Physician: Tod Giordano DO Finalized Date/Time: 03/12/18 15:42:08 Pt. Name: JOSE RODRIGUEZO.B./Sex: 1965 FEMALE Med Rec #: [id number] Physician: Tod Giordano DO Financial #: [id number] Pt. Type: D Room/Bed: / Admit/Disch: 03/12/18 09:28:40 - Institution: Phase II Case Times MAGR Pre-Care Text: Patient is free from s/s of injury. Patient remains free from compromised physical state related to surgery or anesthesia. Patient comfort maintained. Patient/family verbalize understanding of discharge instructions. Entry 1 In PACU II 03/12/18 14:46:00 Discharge from PACU 03/12/18 15:38:00 II Last Modified By: Romi Davidson RN 03/12/18 15:42:00 Post-Care Text: The patient remains free from s/s of injury. Patient's vital signs stable, circulation maintained, return to preop mental and physical status, opsite/dressing intact, minimal or absent nausea and vomiting, tolerates po intake. Patient verbalizes adequate pain control. Patient/family express understanding of discharge instructions. Finalized By: Romi Davidson RN Document Signatures Signed By: Romi Davidson RN 03/12/18 15:42 [facility] Pre-Op Record Summary Primary Physician: Tod Giordano DO Finalized Date/Time: 03/12/18 14:22:43 Pt. Name: JOSE RODRIGUEZ/Sex: 1965 FEMALE Med Rec #: [id number] Physician: Tod Giordano DO Financial #: [id number] Pt. Type: D Room/Bed: / Admit/Disch: 03/12/18 09:28:40 - Institution: Pre-Op Case Times MAGR Pre-Care Text: Patient will be optimally prepared for surgery. Patient is free from s/s of injury. Provide information to patient/family related to plan of care. Verify patient allergies. Confirm identity and verify consent before the operative or invasive procedure. Entry 1 Patient Arrival Time 03/12/18 09:57:00 Preop Departure 03/12/18 12:10:00 Last Modified By: Romi Davidson RN 03/12/18 14:22:38 Post-Care Text: Patient is prepared mentally and physically and is ready for surgery. The patient remains free from s/s of injury. Patient/family express understanding of plan of care and participate in decisions affecting his or her perioperrative plan of care. Allergies documented appropriately. Patient identifiers and consent correct. General Comments: Denies chest pain, shortness of breath or illnessess. Denies pacemaker/defib. States history of sleep apnea, uses a c-pap. Did not bring in c-pap today. Finalized By: Romi Davidson RN Document Signatures Signed By: Romi Davidson RN 03/12/18 14:22 [facility] Operative Report - Surgeon/P anibal 03-12-2018 Operative Report - Surgeon/Physician Preoperative diagnosis: Arthritis/degenerative joint disease carpometacarpal joint right thumb Postoperative diagnosis: Same Procedure: CMC arthroplasty right thumb with resection of trapezium and ligament reconstruction with interposition arthroplasty Surgeon: Jhonatan Giordano D.O. Anesthesia: General Indications for surgery: Ongoing pain and discomfort at the base of the thumb with progression of symptoms and progression of weakness radiographic and physical findings confirming diagnosis of carpometacarpal arthritis Estimated blood loss: Scant Complications: None Findings: There was obliteration of the joint space at the base of the thumb and erosive changes on the articular surface Procedure summary: Patient was brought to the operative suite and given general anesthesia. The right upper extremity was sterilely prepped and draped in usual fashion. Arm was exsanguinated and tourniquet was inflated to 250 mmHg. Timeout was taken in the operating room. Curvilinear incision was made over the carpometacarpal joint and extending proximally along the flexor carpi radialis tendon. The dorsal capsule was incised care was taken to identify and protect the radial artery. There is several venous structures traversing the field and the subcutaneous region and these were carefully dissected out and retracted out of the way. The trapezium was meticulously freed up from the surrounding ligamentous attachments and eventually removed in situ and whole. It was submitted to the pathologist for histopathological studies. A bur was used to create a hole in the base of the first metacarpal and also dorsolaterally on the metacarpal. The flexor carpi radialis was identified proximally and it was split transversely 50%. Then it was split longitudinally and distally and then the split and it was then passed through the base of the carpometacarpal joint through the metacarpal and out the dorsal lateral hole. It was sutured back upon itself with a 2-0 Tycron suture. What remained of the tendon was then rolled upon itself and stuffed into the joint. The remaining end of the tendon was rolled upon itself r then positioned into the carpometacarpal joint. The wound was thoroughly irrigated Capsule was closed with 2-0 vicryll suture. Subcutaneous layers were closed with 20 Vicryls suture. Skin was closed with 4-0 nylon suture. Bacitracin Adaptic and sterile dressings were applied followed by a radial plaster splint [Electronically Signed on: 03/12/2018 14:42 EDT] Tod Giordano DO [Verified on: 03/12/2018 14:42 EDT] Tod Giordano DO [facility] Encounters Encounter Date Encounter Type Care Provider Facility Start: 10-25-2022 End: 10-26-[address] ELEANOR ADAIR . Facility: Start: 09-21-2022 ambulatory Jono MORIN Facility :[facility] Start: 08-30-2022 Encounter for genera l adult medical examination without abnormal findings DR ELEANOR ADAIR . [facility] Start: 08-26-2022 End: 08-27-[address] ELEANOR ADAIR . Facility: Start: 08-26-2022 End: 08-27-2022 Encounter for general adult medical examination without abnormal findings DR ELEANOR ADAIR . Facility: Payers Date Payer Category Payer Unknown [id number] 1965 Unknown [id number] 1965 Unknown [id number] 1959 Unknown [id number] Summary Purpose Family History No Family History Records FoundNo Family History Records FoundNo Family History Records Found Advance Directives No Advanced Directives Records FoundNo Advanced Directives Records FoundNo Advanced Directives Records Found Hospital Course Note [facility] SURGERY Clinical Discharge Summary PERSON INFORMATION Name JOSE RODRIGUEZ Age 52 Years 65 Sex FEMALE Language Tajik PCP ELEANOR ADAIR Marital Status Med Service Ambulatory Surgery Acct# Arrival 03/12/18 09:28:40 Visit Reason RIGHT CARPAL METACARPAL ARTHROPLASTY Acuity LOS 049 01:28 Address: [address] [place] [id number] Comment: PROVIDER INFORMATION VITALS INFORMATION Vital Sign Triage Latest Temp Oral Temp Temporal Temp Intravascular Temp Axillary Temp Rectal 02 Sat 95 % 96 % Respiratory Rate 16 br/min 17 br/min Peripheral Pulse Rate 77 bpm 77 bpm Apical Heart Rate Blood Pressure 136 mmHg / 91 mmHg 140 mmHg / 83 mmHg Comment: MEDICAL INFORMATION Allergy Info: Viibryd Prescriptions Given: Medication List: Continue These Medications: acetaminophen-oxycodone (Percocet 5/325 oral tablet) 2 tab(s) Oral Every 4 hours as needed for for pain ALPRAZolam (Xanax 0.25 mg oral tablet) 0.25 mg Oral 3 times a day (more content not included)... Note Patient: JOSE RODRIGUEZ RN: 13-10-24 Age: 52 years Sex: FEMALE : [birth year] Associated Diagnoses: None Author: Guido Tomlin MD Postoperative Information Post Operative Note: Operative Day. Anesthetic utilized: General. Health Status Allergies: Allergic Reactions (All) Severity Not Documented Viibryd- Tachycardia. Problem list (past medical history): All Problems Zinc deficiency disease / SNOMED CT 427534341 / Confirmed GERD (gastroesophageal reflux disease) / SNOMED CT 467347573 / Confirmed Hiatal hernia / SNOMED CT 629281064 / Confirmed IBS (irritable bowel syndrome) / SNOMED CT 95197450 / Confirmed Sleep apnea / SNOMED CT 628078099 / Confirmed Physical Examination VS/Measurements Vital Signs (last 24 hrs) Last Charted Heart Rate Peripheral 77 bpm (MAR 12 10:00) Resp Rate 0 br/min (MAR 12:15) SBP 161 mmHg (MAR 12 14:14) DBP 102 mmHg (MAR 12 14:14) SpO2 92 % (MAR 12:15) Weight 91.100 kg (MAR 12:00) Height 162.56 cm (MAR 12:) Review / (more content not included)... Procedure Findings Note Patient: JOSE RODRIGUEZ Misael RN: 16-03-25 Age: 52 years Sex: FEMALE : [birth year] Associated Diagnoses: None Author: Guido Tomlin MD Postoperative Information Post Operative Note: Operative Day. Anesthetic utilized: General. Health Status Allergies: Allergic Reactions (All) Severity Not Documented Viibryd- Tachycardia. Problem list (past medical history): All Problems Zinc deficiency disease / SNOMED CT 161012021 / Confirmed GERD (gastroesophageal reflux disease) / SNOMED CT 029204506 / Confirmed Hiatal hernia / SNOMED CT 541504775 / Confirmed IBS (irritable bowel syndrome) / SNOMED CT 33799881 / Confirmed Sleep apnea / SNOMED CT 421081204 / Confirmed Physical Examination VS/Measurements Vital Signs (last 24 hrs) Last Charted Heart Rate Peripheral 77 bpm (MAR 12:00) Resp Rate 0 br/min (MAR 12:15) SBP 161 mmHg (MAR 12 14:14) DBP 102 mmHg (MAR 12 14:14) SpO2 92 % (MAR 12:15) Weight 91.100 kg (MAR 12:00) Height 162.56 cm (MAR 12:) Review / (more content not included)... Additional Source Comments INFORMATION SOURCE (unrecogn ized section and content) DATE CREATED AUTHOR 03/09/2019 [facility] DATE CREATED AUTHOR AUTHOR'S ORGANIZ ATION 09/16/2022 [facility] DATE CREATED AUTHOR AUTHOR'S ORGANIZ ATION 12/02/2022 [facility] FOR RECORDS PERTAINING TO PATIENTS WHO ARE OR HAVE BEEN ENROLLED IN A CHEMICAL DEPENDENCY/SUBSTANCEABUSE PROGRAM, SOME INFORMATION MAY BE OMITTED. This clinical summary was aggregated from multiple sources. Caution should be exercised in using it in the provision of clinical care. This summary normalizes information from multiple sources, and as a consequence, information in this document may materially change the coding, format and clinical context of patient data. In addition, data may be omitted in some cases. CLINICAL DECISIONS SHOULD BE BASED ON THE PRIMARY CLINICAL RECORDS. [facility]. provides no warranty or guarantee of the accuracy or completeness of information in this document.
--- NOTE | 2025-01-01 12:42 | XR_ITS ---
The [address] [address] Patient Name: JOSE RODRIGUEZ MRN: [id number] date: 1965 Sex: F Assigned Patient Location: [facility] Current Patient Location: [facility] Accession/Order Number: [id number] Exam Date: 01/01/2025 13:12 Report Date: 01/01/2025 13:14 At the request of: ELEANOR ADAIR MD Procedure: XR thoracic spine 3V THORACIC SPINE - 3 views: CLINICAL HISTORY: Chronic worsening back pain m54.9 no reported injury. COMPARISON: None AP and 2 lateral views were obtained. There is osteopenia. There is no evidence of compression fracture or displacement. The pedicles are intact. Mild endplate spurring is visualized. There are no paraspinal soft tissue abnormalities. XR/XR thoracic spine 3V IMPRESSION: OSTEOPENIA AND MILD DEGENERATIVE CHANGE. NO ACUTE BONY FINDINGS. Impression dictated by: Augusta Hoang M.D. 01/01/2025 1:14 PM Dictation Location: [place] [address] Electronically authenticated by: [id number] Date: 01/01/2025 13:14
== END 2025-01-01 12:24 | disposition home or self-care (01) ==
LOC: RAD 12:25
PROVIDERS: PCP Family Medicine; Visit Provider Family Medicine
DX: M54.9 Dorsalgia, unspecified (principal); M85.80 Other specified disorders of bone density and structure, unspecified site
CPT/HCPCS: 72072

== ENCOUNTER 2025-06-18 12:06 | Outpatient (OUT) | payer OTHER, SELFPAY ==
--- OUTSIDE RECORDS SUMMARY | 2025-06-18 12:14 | XMS_ITS | CCD ---
Author Organization [facility] Care Team Providers Care Toll Line Repairer Name Role Phone Jono MORIN Attending Unavailable Eleanor Gongora Referring Alba Lawson, DR WEBSTER Primary Care Unavailable FAUSTINA TRAN Attending Unavailable JOSE ANTONIO ., FAUSTINA Consulting Unavailable JOSE ANTONIO ., FAUSTINA Admitting Unavailable SRIRAM READ Consulting Unavailable GIOVANY ., DR WEBSTER Consulting Unavailable GIOVANY ., DR WEBSTER Primary Care Unavailable GIOVANY ., DR WEBSTER Admitting Unavailable GIOVANY ., DR WEBSTER Attending Unavailable Unavailable Primary Care Provider UnavailMAEGAN Jensen Attending Unavailable Allergies Allergy ClassificationReported Allergen(s)Allergy TypeDate of OnsetReaction(s) Facility (2 sources)vilazodone; Translations: [Viibryd]Drug Pfquvxn68-52-1922[facility] ([facility] source)No Known Medication Allergies; Translations: [No Known Medication Allergies]Propensity to adverse reactions (disorder)[facility] (1 source)OndansetronDrug Eupjxdx66-04-2558YefGreen [facility] Hospital [facility] (2 sources)Acetaminophen / oxyCODONEDrug Izducdl96-59-7652[facility] (2 sources)vilazodoneDrug Agiwyxk96-39-0906ThzuhbrGSCV Healthcare Medications Current Medications MedicationDrug Class(es)DatesSig (Normalized)Sig (Original)diclofenac sodium 75 mg delayed release oral tablet (2 sources)Nonsteroidal Anti-inflammatory Drugtake 1 tablet by mouth twice daily as neededdiclofenac (Voltaren) 75 MG EC tablet Take 75 mg by mouth 2 (two) times a day as needed Activepantoprazole 40 mg delayed release oral tablet (3 sources)Proton Pump Inhibitorpantoprazole (ProtoNix) 40 MG EC tablet 1 (one) time each day at the same time Activephentermine hydrochloride 37.5 mg oral tablet (2 sources)Sympathomimetic Amine AnorecticStart: 77-76-6206zsnm 1 tablet by mouth before mealtimephentermine (Adipex-P) 37.5 MG tablet Take 37.5 mg by mouth in the morning. Take before meals. 01/01/2025 Activesucralfate 1000 mg oral tablet (3 sources)Aluminum Complexsucralfate (Carafate) 1 g tablet every 12 (twelve) hours ActivetiZANidine 4 mg oral tablet (2 sources)Central alpha-2 Adrenergic AgonistStart: 23-86-6238wkih 2 tablets by mouth at bedtime as neededtiZANidine (Zanaflex) 4 MG tablet TAKE 2 TABLETS BY MOUTH AT BEDTIME NEEDED 01/01/2025 Activetriamcinolone acetonide 0.25 mg/ml topical cream (2 sources)CorticosteroidStart: 49-33-8540grsxnazlwmeyl (Kenalog) 0.025 % cream Indications: Other seborrheic dermatitis Apply to affected areas of the ears, up to twice a day when flared, 30 day supply. Okay to use 5 days on and 2 days off 80 g 11 01/13/2025 Active Problems Problem ClassificationProblemDateDocumented DateEpisodic/ChronicAnxiety disorders (1 source)Anxiety disorder, unspecified; Translations: [ANXIETY DISORDER UNSPECIFIED]Onset: 90-13-7456VzckksvYhegylw dysrhythmias (1 source)Ventricular premature depolarization; Translations: [VENTRICULR PREMATURE DEPOLARIZATION]Onset: 37-84-6353FdoxlunPweukti dysrhythmias (1 source)Palpitations; Translations: [PALPITATIONS]Onset: 97-11-5556Lqzsorij Conditions associated with dizziness or vertigo (4 sources)Dizziness and giddiness; Translations: [DIZZINESS AND GIDDINESS] Onset: 28-38-2107MpsmhzorLvyiwjimol disorders (1 source)Gastro-esophageal reflux disease without esophagitis; Translations: [GERD WITHOUT ESOPHAGITIS]Onset: 60-07-2478QpjxjbpBmany valve disorders (1 source)Other abnormalities of heart beat; Translations: [OTHER ABNORMALITIES OF HEART BEAT]Onset: 37-50-0591MsmkvjuuTnuz disorders (1 source)Mood disorders; Translations: [DEPRESSION UNSPECIFIED]Onset: 78-98-2180Sulwg aftercare (1 source)Other residential (current) drug therapy; Translations: [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 CURRENT DRUG THERAPY]Onset: 95-17-6679HjxlxhgrBgkzu and unspecified benign neoplasm (2 sources)Melanocytic nevus of trunk; Translations: [Melanocytic nevi of trunk] 66-30-3012KfogbxwsPqwhz and unspecified benign neoplasm (2 sources)Senile angioma; Translations: [Hemangioma of skin and subcutaneous tissue]78-66-2287CoejhlasAqnmb and unspecified benign neoplasm (2 sources)Dermatofibroma of left lower limb; Translations: [Other benign neoplasm of skin of left lower limb,including hip]10-96-6250MkwnqjziVnqcs connective tissue disease (1 source)Arthrodesis status; Translations: [ARTHRODESIS STATUS]Onset: 07-70-1689IqxsnrytWxlbu gastrointestinal disorders (1 source)Irritable bowel syndrome without diarrhea; Translations: [IRRITABLE BOWEL SYND W/O DIARRHEA]Onset: 10-05-1752PgopnvlTnawj inflammatory condition of skin (2 sources)Seborrheic dermatitis; Translations: [Other seborrheic dermatitis] 84-10-6520PlwkhxdtOjenm lower respiratory disease (1 source)Shortness of breath; Translations: [SHORTNESS OF BREATH]Onset: 73-20-7948VznbzzlxZkbak nervous system disorders (2 sources)Notalgia paresthetica; Translations: [Paresthesia of skin]01-13-2025 EpisodicOther skin disorders (2 sources)Seborrheic keratosis; Translations: [Other seborrheic keratosis] 07-85-1137NolnekspUchtxfwf codes; unclassified (1 source)Sleep apnea, unspecified; Translations: [SLEEP APNEA UNSPECIFIED] Onset: 53-24-2594DxzouemEegouzfv codes; unclassified (1 source)Acquired absence of other specified parts of digestive tract; Translations: [ACQ ABSENCE OTH PART DIGESTV TRACT]Onset: 88-45-2171Kbsgkwry Residual codes; unclassified (1 source)Acquired absence of both cervix and uterus; Translations: [ACQUIRED ABSENCE BOTH CERVIX AND UTERUS]Onset: 67-30-1879Pdziyuvh Results Test NameValueInterpretationReference RangeFacilityBNPon 72-02-6085Deudzowkwzj peptide B (Bld) [Mass/Vol]114.0 pg/mLNormal<=900.0The [facility] HospitalComment on above:Performed By: #### DDIM #### [facility] [address] [place] [address] Dr. Stefany Purcell EUN ADMITon 87-65-0832QG [Catalytic activity/Vol]66 U/L Qlhmpp16-765Rpl [facility] HospitalComment on above:Performed By: #### DDIM #### [facility] [address] [place] [address] Dr. Stefany Gonzalez.MB [Mass/Vol]1.19 ng/mLNormal<=3.60[facility] Comment on above:Performed By: #### DDIM #### [facility] [address] [place] [address] Dr. Stefany CaseTROP4.5 pg/mLNormal4.0-51.3The [facility] HospitalComment on above:Result Comment: CUT-OFF POINTS HAVE BEEN ESTABLISHED BASED ON THE FOURTH UNIVERSAL DEFINITIONS OF MYOCARDIAL INFARCTION. THE UPPER REFERENCE LIMIT (URL) OF TROPONIN, DEFINED THE 99TH PERCENTILE OF cTnI DISTRIBUTION IN A REFERENCE POPULATION, HAS BEEN CONFIRMED THE DECISION THRESHOLD FOR MD DIAGNOSIS.Performed By: #### DDIM #### [facility] [address] [place] [address] Dr. Stefany CampbellO34 ng/mLNormal9-82The [facility] HospitalComment on above: Performed By: #### DDIM #### [facility] [address] [place] [address] Dr. Stefany Stearns AUTO DIFFon 66-49-4703SXEP #0.0 103/ulNormal0.0-0.1The [facility] HospitalComment on above:Performed By: #### DDIM #### [facility] [address] [place] [address] Dr. Stefany AndradeBasophils/100 WBC (Bld)0.5 %Normal0.2-2.0[facility] Comment on above:Performed By: #### DDIM #### [facility] [address] [place] [address] Dr. Stefany Baldwin #0.2 103/ulNormal0.0-0.7The [facility] HospitalComment on above: Performed By: #### DDIM #### [facility] [address] [place] [address] Dr. Stefany Hauserosinophils/100 WBC (Bld)2.7 %Normal0.9-7.0[facility] Comment on above:Performed By: #### DDIM #### [facility] [address] [place] [address] Dr. Stefany Hauserrythrocyte distribution width (RBC) [Ratio]12.1 %Dhumra30.0-15.0 The [facility] HospitalComment on above:Performed By: #### DDIM #### [facility] [address] [place] [address] Dr. Stefany AndradeHematocrit (Bld) [Volume fraction]38.7 %Aodolg80.0-48.0The [facility] HospitalComment on above:Performed By: #### DDIM #### [facility] [address] [place] [address] Dr. Stefany AndradeHemoglobin (Bld) [Mass/Vol]13.2 g/iCWjydcc19.0-16.0[facility] HospitalComment on above:Performed By: #### DDIM #### [facility] [address] [place] [address] Dr. Stefany Candelaria #0.04 10e3/ulCritically high0.00-0.03[facility] Comment on above:Performed By: #### DDIM #### [facility] [address] [place] [address] Dr. Stefany Candelaria %0.5 %Normal0.0-0.5The [facility] HospitalComment on above: Performed By: #### DDIM #### [facility] [address] [place] [address] Dr. Stefany Rothman #2.9 103/ulNormal1.2-3.8The [facility] HospitalComment on above:Performed By: #### DDIM #### [facility] [address] [place] [address] Dr. Stefany Henleymphocytes/100 WBC (Bld)38.6 %Jqndzt95.5-60.0The [facility] HospitalComment on above:Performed By: #### DDIM #### [facility] [address] [place] [address] Dr. Stefany Worthington DIFF REQNONormalThe German HospitalComment on above: Performed By: #### DDIM #### [facility] [address] [place] [address] Dr. Stefany Franks (RBC) [Entitic mass]32.4 bfNwgxgj13.7-34.0The [facility] HospitalComment on above:Performed By: #### DDIM #### [facility] [address] [place] [address] Dr. Stefany Franks (RBC) [Mass/Vol]34.1 g/kDDrpzfa85.9-35.2The [facility] HospitalComment on above:Performed By: #### DDIM #### [facility] [address] [place] [address] Dr. Stefany Franks (RBC) [Entitic vol]95.1 yWUvnzwa41.0-99.0The [facility] HospitalComment on above:Performed By: #### DDIM #### [facility] [address] [place] [address] Dr. Stefany Scott #0.5 103/ulNormal0.3-0.8The [facility] HospitalComment on above:Performed By: #### DDIM #### [facility] [address] [place] [address] Dr. Stefany Wilkinsocytes/100 WBC (Bld)7.1 %Normal1.7-12.0[facility] Comment on above:Performed By: #### DDIM #### [facility] [address] [place] [address] Dr. Stefany Gloria #3.8 103/ulNormal1.4-6.5The [facility] HospitalComment on above:Performed By: #### DDIM #### [facility] [address] [place] [address] Dr. Stefany Loveutrophils/100 WBC (Bld)50.6 %Nrjpuq80.0-75.0The [facility] HospitalComment on above:Performed By: #### DDIM #### [facility] [address] [place] [address] Dr. Stefany AndradePlatelet mean volume (Bld) [Entitic vol]10.4 fLNormal9.5-13.5The [facility] HospitalComup health system on above:Performed By: #### DDIM #### [facility] [address] [place] [address] Dr. Stefany AndradePLT319 103/jyAaoptq523-066Xvp [facility] on above: Performed By: #### DDIM #### [facility] [address] [place] [address] Dr. Stefany AndradeRBC4.07 106/ulCritically low4.20-5.40The [facility] on above:Performed By: #### DDIM #### [facility] [address] [place] [address] Dr. Stefany AndradeWBC7.5 103/ulNormal4.0-11.0The [facility] on above: Performed By: #### DDIM #### [facility] [address] [place] [address] Dr. Stefany BautistaDIMERon 64-08-9241N-DIMER0.41 mg/L FEUNormal<=0.59The [facility] on above:Performed By: #### DDIM #### [facility] [address] [place] [address] Dr. Stefany BautistaDIMER COMMENTSSEE BELOWNoTriHealth Bethesda North HospitalComup health system on above:Result Comment: Increases in D-Dimer concentration observed with thromboembolic events [...] stress, and generalized hospitalization. Performed By: #### DDIM #### [facility] [address] [place] [address] Dr. Stefany Donaldson URINE PROFILEon 01-37-1579Vjisdvprt Ql (U)NegativeNormal NEGATIVEGreen Cross HospitalComment on above:Performed By: #### ERUR #### [facility] [address] [place] [address] Dr. Stefany AndradeClarity (U)CLEARNormalCLEARGreen Cross HospitalComment on above: Performed By: #### ERUR #### [facility] [address] [place] [address] Dr. Stefany Amezquita (U)LT. YELLOWNormalYELLOWRiverside Methodist Hospital on above:Performed By: #### ERUR #### [facility] [address] [place] [address] Dr. Stefany HaDA micrscopic examination will be performed if indicated. NormalRiverside Methodist Hospital on above:Performed By: #### ERUR #### [facility] [address] [place] [address] Dr. Stefany AndradeGlucose Ql (U)NegativeNormalNEGATIVEGreen Cross HospitalComment on above:Performed By: #### ERUR #### [facility] [address] [place] [address] Dr. Stefany AndradeHemoglobin Ql (U)NegativeNormalNEGATIVERegency Hospital [facility] on above:Performed By: #### ERUR #### [facility] [address] [place] [address] Dr. Stefany AndradeKetones Ql (U)NegativeNormalNEGATIVEGreen Cross HospitalComment on above:Performed By: #### ERUR #### [facility] [address] [place] [address] Dr. Stefany AndradeLEUKOCYTESNegativeNormalNEGATIVEGreen Cross HospitalComment on above:Performed By: #### ERUR #### [facility] [address] [place] [address] Dr. Stefany Hightower Ql (U)NegativeNormalNEGATIVEThe German HospitalComment on above:Performed By: #### ERUR #### [facility] [address] [place] [address] Dr. Stefany AndradepH (U)7.0 [pH]Normal5-9The [facility] HospitalComment on above: Performed By: #### ERUR #### [facility] [address] [place] [address] Dr. Stefany AndradeSPEC GRAVITY1.116Mhvrgb8.005-<=1.025The [facility] HospitalComment on above:Performed By: #### ERUR #### [facility] [address] [place] [address] Dr. Stefany Gomez PROTEINNegativeNormalNEGATIVE/ TRACEGreen Cross Hospital Comment on above:Performed By: #### ERUR #### [facility] [address] [place] [address] Dr. Stefany Branham MICRO INDNOT INDICATEDNormalThMercy Health St. Elizabeth Boardman HospitalComment on above:Result Comment: Previously reported as: INDICATED On 10/25/2022 21:38 By [email or web address] By: #### ERUR #### [facility] [address] [place] [address] Dr. Stefany Tolliver Qn (U)0.2 {Deangelo'U}/dLNormal0.2 - 1.0The [facility] HospitalComment on above:Performed By: #### ERUR #### [facility] [address] [place] [address] Dr. Stefany Segundo 14(COMP METB)on 24-79-2318Xfmuzjt [Mass/Vol]4.0 g/dLNormal 3.4-5.0The [facility] HospitalComment on above:Performed By: #### DDIM #### [facility] [address] [address] [address] Stefany AndradeAlbumin/Globulin [Mass ratio]1.1 {ratio}NormalThe German HospitalComment on above:Performed By: #### DDIM #### [facility] [address] [address] [address] Stefany PaintingP [Catalytic activity/Vol]81 U/OHuiefl52-411Wbj [facility] HospitalComment on above:Performed By: #### DDIM #### [facility] [address] [address] [address] Stefany PaintingT [Catalytic activity/Vol]24 U/KPkoues80-91Shr [facility] HospitalComment on above:Performed By: #### DDIM #### [facility] [address] [address] [address] Stefany AndradeAnion gap [Moles/Vol]14.9 mmol/LNormalThe [facility] Comment on above:Performed By: #### DDIM #### [facility] [address] [address] [address] Stefany AndradeAST [Catalytic activity/Vol]12 U/LCritically gjf30-21Vvq [facility] HospitalComment on above:Performed By: #### DDIM #### [facility] [address] [address] [address] Stefany AndradeBilirubin [Mass/Vol]0.2 mg/dLNormal0.2-1.0[facility] Comment on above:Performed By: #### DDIM #### [facility] [address] [address] [address] Stefany AndradeCalcium [Mass/Vol]9.2 mg/dLNormal8.5-10.1[facility] Comment on above:Performed By: #### DDIM #### [facility] [address] [address] [address] Stefany AndradeChloride [Moles/Vol]105 mmol/JOspzdz75-218Gfc [facility] Comment on above:Performed By: #### DDIM #### [facility] [address] [address] [address] Stefany AndradeCO2 [Moles/Vol]26.9 mmol/JYxawyc04.0-32.0[facility] Comment on above:Performed By: #### DDIM #### [facility] [address] [address] [address] Stefany AndradeCreatinine [Mass/Vol]0.72 mg/dLNormal0.55-1.02The [facility] HospitalComment on above:Performed By: #### DDIM #### [facility] [address] [address] [address] Stefany HauserGFR-AF HUNGARIAN>60Normal>=60The [facility] HospitalComment on above:Performed By: #### DDIM #### [facility] [address] [address] [address] Stefany HauserGFR-NON AF HUNGARIAN>60Normal>=60The [facility] HospitalComment on above:Performed By: #### DDIM #### [facility] [address] [address] [address] Stefany AndradeGlobulin (S) [Mass/Vol]3.5 g/dLNormalThe [facility] HospitalComment on above:Performed By: #### DDIM #### [facility] [address] [address] [address] Stefany AndradeGlucose [Mass/Vol]103 mg/bNRuufnc08-598Mag [facility] Comment on above:Performed By: #### DDIM #### [facility] [address] [address] [address] Stefany AndradePotassium [Moles/Vol]3.8 mmol/LNormal3.5-5.1[facility] Comment on above:Performed By: #### DDIM #### [facility] [address] [address] [address] Stefany AndradeProtein [Mass/Vol]7.5 g/dLNormal6.4-8.2[facility] Comment on above:Performed By: #### DDIM #### [facility] [address] [address] [address] Stefany Lowryum [Moles/Vol]143 mmol/MJawcjv491-006JcwGreen Cross Hospital Comment on above:Performed By: #### DDIM #### [facility] [address] [place] [address] Dr. Stefany Kilpatrick nitrogen [Mass/Vol]13.0 mg/dLNormal7.0-18.0[facility] HospitalComment on above:Performed By: #### DDIM #### [facility] [address] [place] [address] Dr. Stefany Kilpatrick nitrogen/Creatinine [Mass ratio]18.1 mg/mgNoTriHealth Bethesda North HospitalComment on above:Performed By: #### DDIM #### [facility] [address] [place] [address] Dr. Stefany Burks 99-81-7425XWM Coag (PPP) [Relative time]{INR}NormalThe German HospitalComment on above:Performed By: #### DDIM #### [facility] [address] [place] [address] Dr. Stefany Abdi GUIDELINESSEE BELOWPremier HealthComment on above:Result Comment: DESIRED INR: 2.0 - 3.0 CONDITIONS NOT LISTED BELOW 2.5 - 3.5 FOR PROSTHETIC HEART VALVE REPLACEMENT 2.5 - 3.5 RECURRENT THROMBOSIS Performed By: #### DDIM #### [facility] [address] [place] [address] Dr. Stefany Smiley Coag (PPP) [Time]9.6 sNormal9.0-11.6[facility] Comment on above:Performed By: #### DDIM #### [facility] [address] [place] [address] Dr. Stefany Swanson 85-59-6532qQLY Coag (Bld) [Time]30.2 fHetgve95.3-36.2[facility] HospitalComment on above:Performed By: #### DDIM #### [facility] [address] [place] [address] Dr. Stefany Ramos, HIGH SENSITIVITYon 17-95-8223TLOHMK1.2 pg/mLNormal 4.0-51.3The [facility] HospitalComment on above:Result Comment: CUT-OFF POINTS HAVE BEEN ESTABLISHED BASED ON THE FOURTH UNIVERSAL DEFINITIONS OF MYOCARDIAL INFARCTION. THE UPPER REFERENCE LIMIT (URL) OF TROPONIN, DEFINED THE 99TH PERCENTILE OF cTnI DISTRIBUTION IN A REFERENCE POPULATION, HAS BEEN CONFIRMED THE DECISION THRESHOLD FOR MD DIAGNOSIS.Performed By: #### HSTROPN #### [facility] [address] [place] [address] Dr. Stefany Lopez 40-59-2811TYA8.548 uIU/mLNormal0.358-3.740The [facility] HospitalComment on above:Performed By: #### TSH #### [facility] [address] [place] [address] Dr. Stefany AndradeXR CHEST 1 Von [id number] CHEST 1 VEXAM: XR CHEST 1 V HISTORY: Dizziness COMPARISON: None. TECHNIQUE: Single view of the chest FINDINGS: Heart size normal given technique. No focal consolidation, pleural effusion, pulmonary congestion or pneumothorax. IMPRESSION: No acute findings. Electronically authenticated by: SRIRAM READ Date: 2022-10-25 20:29NormKettering Health PrebleINSULINon 80-05-4299Nlfxtlx83.1 uIU/mLNormal2.6-24.9The [facility] HospitalComment on above:Performed By: #### DDIM #### [facility] [address] [place] [address] Dr. Stefany Thorpe AUTO DIFFon 09-65-1984APVU #0.1 103/ulNormal0.0-0.1The [facility] HospitalComment on above:Performed By: #### DDIM #### [facility] [address] [place] [address] Dr. Stefany AndradeBasophils/100 WBC (Bld)0.9 %Normal0.2-2.0[facility] Comment on above:Performed By: #### DDIM #### [facility] [address] [place] [address] Dr. Stefany Baldwin #0.1 103/ulNormal0.0-0.7The [facility] HospitalComment on above: Performed By: #### DDIM #### [facility] [address] [place] [address] Dr. Stefany Hauserosinophils/100 WBC (Bld)2.2 %Normal0.9-7.0[facility] Comment on above:Performed By: #### DDIM #### [facility] [address] [place] [address] Dr. Stefany Hauserrythrocyte distribution width (RBC) [Ratio]11.9 %Lheige85.0-15.0 The [facility] HospitalComment on above:Performed By: #### DDIM #### [facility] [address] [place] [address] Dr. Stefany AndradeHematocrit (Bld) [Volume fraction]46.4 %Ppinxx90.0-48.0The [facility] HospitalComment on above:Performed By: #### DDIM #### [facility] [address] [place] [address] Dr. Stefany AndradeHemoglobin (Bld) [Mass/Vol]14.6 g/jGXphtnx67.0-16.0The [facility] HospitalComment on above:Performed By: #### DDIM #### [facility] [address] [place] [address] Dr. Stefany Candelaria #0.01 10e3/ulNormal0.00-0.03The [facility] HospitalComment on above:Performed By: #### DDIM #### [facility] [address] [place] [address] Dr. Stefany Candelaria %0.2 %Normal0.0-0.5The [facility] HospitalComment on above: Performed By: #### DDIM #### [facility] [address] [place] [address] Dr. Stefany RingH #2.3 103/ulNormal1.2-3.8The [facility] HospitalComment on above:Performed By: #### DDIM #### [facility] [address] [place] [address] Dr. Stefany Henleymphocytes/100 WBC (Bld)41.7 %Iloyhq93.5-60.0The [facility] HospitalComment on above:Performed By: #### DDIM #### [facility] [address] [place] [address] Dr. Stefany RodgersUAL DIFF REQNONormalThe German HospitalComment on above: Performed By: #### DDIM #### [facility] [address] [place] [address] Dr. Stefany Franks (RBC) [Entitic mass]33.4 heAfcriz97.7-34.0The [facility] HospitalComment on above:Performed By: #### DDIM #### [facility] [address] [place] [address] Dr. Stefany Franks (RBC) [Mass/Vol]31.5 g/oXSwteto14.9-35.2The [facility] HospitalComment on above:Performed By: #### DDIM #### [facility] [address] [place] [address] Dr. Stefany Castorena (RBC) [Entitic vol]106.2 fLCritically high81.0-99.0The [facility] on above:Result Comment: Slight Macrocytosis Present Performed By: #### DDIM #### [facility] [address] [place] [address] Dr. Stefany Scott #0.5 103/ulNormal0.3-0.8The [facility] HospitalComment on above:Performed By: #### DDIM #### [facility] [address] [place] [address] Dr. Stefany Wilkinsocytes/100 WBC (Bld)9.4 %Normal1.7-12.0[facility] Comment on above:Performed By: #### DDIM #### [facility] [address] [place] [address] Dr. Stefany Gloria #2.5 103/ulNormal1.4-6.5The [facility] HospitalComment on above:Performed By: #### DDIM #### [facility] [address] [place] [address] Dr. tSefany Loveutrophils/100 WBC (Bld)45.6 %Yajitg61.0-75.0The [facility] HospitalComup health system on above:Performed By: #### DDIM #### [facility] [address] [place] [address] Dr. Stefany AndradePlatelet mean volume (Bld) [Entitic vol]10.5 fLNormal9.5-13.5The [facility] HospitalComment on above:Performed By: #### DDIM #### [facility] [address] [place] [address] Dr. Stefany AndradePLT351 103/puBrdcyd011-295Ttx [facility] on above: Performed By: #### DDIM #### [facility] [address] [place] [address] Dr. Stefany AndradeRBC4.37 106/ulNormal4.20-5.40[facility] on above:Performed By: #### DDIM #### [facility] [address] [place] [address] Dr. Stefany AndradeWBC5.4 103/ulNormal4.0-11.0[facility] on above: Performed By: #### DDIM #### [facility] [address] [place] [address] Dr. Stefany AndradeFRCAPO THYROXINE INDEX T7on 05-19-8779QHH1.05Uywxqj0.30-4.50[facility] on above:Performed By: #### LIPID, T7, CMP, TSH #### [facility] [address] [place] [address] Dr. Stefany AndradeT3U36.0 %Pxccud89.0-39.0[facility] on above: Performed By: #### LIPID, T7, CMP, TSH #### [facility] [address] [place] [address] Dr. Stefany AndradeT4 [Mass/Vol]8.10 ug/dLNormal4.80-13.90[facility] Comment on above:Performed By: #### LIPID, T7, CMP, TSH #### [facility] [address] [address] [address] Stefany AndradeGLYCOHEMOGLOBIN A1Con 29-89-3054JCW RECOMMENDATIONSEE BELOWSelect Medical Specialty Hospital - ColumbusComment on above:Result Comment: ADA RECOMMENDED LIMIT 4.0 - 6.0 ADA THERAPEUTIC TARGET < 7.0 ACTION SUGGESTED > 7.0Performed By: #### A1C #### [facility] [address] [place] [address] Dr. Stefany AndradeGlucose [Mass/Vol]91 mg/dLNoTriHealth Bethesda North HospitalComment on above:Performed By: #### A1C #### [facility] [address] [place] [address] Dr. Stefany AndradeHbA1c (Bld) [Mass fraction]4.8 %Normal4.5-6.2The [facility] HospitalComment on above:Performed By: #### A1C #### [facility] [address] [place] [address] Dr. Stefany Russ 02-15-3857Tzfc [Mass/Vol]43.0 ug/dLCritically low 50.0-170.0[facility] HospitalComment on above:Performed By: #### IRON #### [facility] [address] [place] [address] Dr. Stefany AndradeLIPID PROFILEon 64-12-2219BZKI-HDL RATIO NORMSEE [facility], BeachwoodComment on above:Result Comment: 3.3 - 4.4 LOW RISK 4.4 - 7.1 AVERAGE RISK 7.1 - 11.0 MODERATE RISK >11.0 HIGH RISKPerformed By: #### LIPID, T7, CMP, TSH #### [facility] [address] [place] [address] Dr. Stefany AndradeCholesterol [Mass/Vol]178 mg/dLNormal<=200[facility] Comment on above:Performed By: #### LIPID, T7, CMP, TSH #### [facility] [address] [address] [address] Stefany Davisesterol in HDL [Mass/Vol]78 mg/dLCritically xpxf14-66JepR[facility]ide [facility] on above:Performed By: #### LIPID, T7, CMP, TSH #### [facility] [address] [address] [address] Stefany Davisesterol in LDL [Mass/Vol]74.0 mg/dLNoTriHealth Bethesda North HospitalComment on above:Performed By: #### LIPID, T7, CMP, TSH #### [facility] [address] [address] [address] Stefany Meneses.total/Cholesterol in HDL [Mass ratio]2.3 {ratio} NormalThe German HospitalComment on above:Performed By: #### LIPID, T7, CMP, TSH #### [facility] [address] [address] [address] Stefany Ariza NORMAL> or = 60 mg/dl - LOW CARDIOVASCULAR RISK <40 mg/dl - HIGH CARDIOVASCULAR RISKPremier HealthComment on above:Performed By: #### LIPID, T7, CMP, TSH #### [facility] [address] [place] [address] Dr. Stefany Gonzalez CALC NORMALSEE BELOWPremier HealthComment on above:Result Comment: <100 mg/dl OPTIMAL 100 - 129 mg/dl NEAR OR ABOVE OPTIMAL 130 - 159 mg/dl BORDERLINE HIGH 160 - 189 mg/dl HIGH >190 mg/dl VERY HIGH Performed By: #### LIPID, T7, CMP, TSH #### [facility] [address] [address] [address] Stefany AndradeTriglyceride [Mass/Vol]130 mg/dLNormal<=150[facility] Comment on above:Performed By: #### LIPID, T7, CMP, TSH #### [facility] [address] [address] [address] Stefany KesslerLDL CALC26.0 mg/dLNoTriHealth Bethesda North HospitalComment on above: Performed By: #### LIPID, T7, CMP, TSH #### [facility] [address] [place] [address] Dr. Stefany Segundo 14(COMP METB)on 47-46-7416Zsvhhvm [Mass/Vol]4.1 g/dLNormal 3.4-5.0The [facility] HospitalComment on above:Performed By: #### LIPID, T7, CMP, TSH #### [facility] [address] [place] [address] Dr. Stefany AndradeAlbumin/Globulin [Mass ratio]1.1 {ratio}NormalThe [facility] HospitalComment on above:Performed By: #### LIPID, T7, CMP, TSH #### [facility] [address] [place] [address] Dr. Stefany Rodríguez [Catalytic activity/Vol]63 U/DTcwjaj04-652Chu [facility] HospitalComment on above:Performed By: #### LIPID, T7, CMP, TSH #### [facility] [address] [place] [address] Dr. Stefany Peters [Catalytic activity/Vol]32 U/YOqllry87-91Wez [facility] HospitalComment on above:Performed By: #### LIPID, T7, CMP, TSH #### [facility] [address] [place] [address] Dr. Stefany Sampson gap [Moles/Vol]15.7 mmol/LNormalThe [facility] Comment on above:Performed By: #### LIPID, T7, CMP, TSH #### [facility] [address] [place] [address] Dr. Stefany Pittman [Catalytic activity/Vol]18 U/DWijcom67-58Fjc [facility] HospitalComment on above:Performed By: #### LIPID, T7, CMP, TSH #### [facility] [address] [place] [address] Dr. Stefany Workmanirubin [Mass/Vol]0.6 mg/dLNormal0.2-1.0[facility] Comment on above:Performed By: #### LIPID, T7, CMP, TSH #### [facility] [address] [address] [address] Stefany AndradeCalcium [Mass/Vol]9.6 mg/dLNormal8.5-10.1[facility] Comment on above:Performed By: #### LIPID, T7, CMP, TSH #### [facility] [address] [address] [address] Stefany AndradeChloride [Moles/Vol]105 mmol/WJrvgmv37-325Hcz [facility] Comment on above:Performed By: #### LIPID, T7, CMP, TSH #### [facility] [address] [address] [address] Stefany AndradeCO2 [Moles/Vol]28.8 mmol/WFdzhpd98.0-32.0[facility] Comment on above:Performed By: #### LIPID, T7, CMP, TSH #### [facility] [address] [place] [address] Dr. Stefany AndradeCreatinine [Mass/Vol]0.79 mg/dLNormal0.55-1.02The [facility] HospitalComment on above:Performed By: #### LIPID, T7, CMP, TSH #### [facility] [address] [address] [address] Stefany HauserGFR-AF HUNGARIAN>60Normal>=60The [facility] HospitalComment on above:Performed By: #### LIPID, T7, CMP, TSH #### [facility] [address] [address] [address] Stefany HauserGFR-NON AF HUNGARIAN>60Normal>=60The [facility] HospitalComment on above:Performed By: #### LIPID, T7, CMP, TSH #### [facility] [address] [place] [address] Dr. Stefany AndradeGlobulin (S) [Mass/Vol]3.7 g/dLNormalThe [facility] HospitalComment on above:Performed By: #### LIPID, T7, CMP, TSH #### [facility] [address] [place] [address] Dr. Stefany AndradeGlucose [Mass/Vol]97 mg/yKHaeqzj63-436DhlGreen Cross Hospital Comment on above:Performed By: #### LIPID, T7, CMP, TSH #### [facility] [address] [place] [address] Dr. Stefany AndradePotassium [Moles/Vol]4.5 mmol/LNormal3.5-5.1[facility] Comment on above:Performed By: #### LIPID, T7, CMP, TSH #### [facility] [address] [place] [address] Dr. Stefany AndradeProtein [Mass/Vol]7.8 g/dLNormal6.4-8.2[facility] Comment on above:Performed By: #### LIPID, T7, CMP, TSH #### [facility] [address] [place] [address] Dr. Stefany AndradeSodium [Moles/Vol]145 mmol/OZvzlcj200-941Rle [facility] Comment on above:Performed By: #### LIPID, T7, CMP, TSH #### [facility] [address] [place] [address] Dr. Stefany AndradeUrea nitrogen [Mass/Vol]13.0 mg/dLNormal7.0-18.0[facility] HospitalComment on above:Performed By: #### LIPID, T7, CMP, TSH #### [facility] [address] [place] [address] Dr. Stefany Kilaptrick nitrogen/Creatinine [Mass ratio]16.5 mg/mgNormalThe [facility] HospitalComment on above:Performed By: #### LIPID, T7, CMP, TSH #### [facility] [address] [place] [address] Dr. Stefany Lopez 35-36-5847RQE3.198 uIU/mLNormal0.358-3.740[facility] Cross HospitalComment on above:Performed By: #### LIPID, T7, CMP, TSH #### [facility] [address] [place] [address] Dr. Stefany Conleysiemanuel Referralon 47-24-3477Ewdzxmmii Referral [id number]#1.00CD:127RashmiandresLutheran HospitalHistory and Physicalon 42-10-3693Osmvsuv and Physical [id number]#1.00[facility] Provider Orderson 64-64-8159Qorygkxz Orders [id number]#1.00OTMercy Health Perrysburg HospitalLab - AP Resultson 43-12-1594Urc - AP Results [id number]#1.00[facility] Pathology Sendout Teston 74-99-8704Zecyjebio Send Out.See ReportGeorgetown Behavioral HospitalComment on above:Order Comment: RIGHT WRIST BONEPerformed By: #### [id number] ####[facility] (DEFAULT)[address] [place], [place] [address]Coding Summaryon 65-39-8894Szybif SummaryCODING DATE: 03/15/2018 FINAL [facility] STATUS: Home PAYOR: Commercial Insurance APC DESCRIPTION 5113 Level 3 Musculoskeletal Procedures ADMIT DX: REASON FOR VISIT DX: M18.11 Unilateral primary osteoarthritis of first carpometacarpal joint, right hand FINAL DX: PRINCIPAL: M18.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#1.00[facility] Telemetry Stripson 37-78-0963Evkndhrmg Strips [id number]#1.00[facility] Anesthesia Noteon 80-95-4459Mkjnhwpufa NotePatient: JOSE RODRIGUEZ Age: 52 years Sex: FEMALE [...] mcg oral capsule 1 tab(s), PO, Daily [place]-3 oral capsule 1 tab(s), PO, Daily Percocet 5/325 oral tablet 2 tab(s), PRN, PO, q4hr Xanax 0.25 mg oral tablet 0.25 mg = 1 tab(s), PRN, PO, TID Zinc-220 oral capsule 220 mg = 1 cap(s), PO, Daily Problem list (past medical history): All Problems Zinc deficiency disease / SNOMED CT 441148562 / Confirmed GERD (gastroesophageal reflux disease) / SNOMED CT 960825687 / Confirmed Hiatal hernia / SNOMED CT 934115099 / Confirmed IBS (irritable bowel syndrome) / SNOMED CT 00038655 / Confirmed Sleep apnea / SNOMED CT 176289555 / Confirmed Histories Family History: No family history items have been selected or recorded. Procedure history: Arthroplasty of joint of the thumb (492612525) on 12/11/2017 at 52 Years. Comments: 12/11/2017 12:12 - Thania Guzman RN left thumb Arthroscopy (74840309). Comments: 12/01/2017 11:33 - Anne-Marie Riley RN bilat knees Hysterectomy and unilateral salpingo-oophorectomy sample (025094882). Appendectomy (222292523). Cholecystectomy (09443425). Thoracic outlet (717874730). Comments: 12/01/2017 11:34 - Anne-Marie Riley RN bilat Fusion (82853788). Comments: 12/01/2017 11:34 - Anne-Marie Riley RN L4&5 Rotator cuff repair (216001632). Comments: 12/01/2017 11:34 - Anne-Marie Riley RN left Colonoscopy (664794602). Esophagogastroduodenoscopy (903749726). Social History Alcohol Assessment Use: Current. Beer, [...] Charted Heart Rate Peripheral 77 bpm (MAR 12:) Resp Rate 16 br/min (MAR 12:) SBP 126 mmHg (MAR 12:) DBP H 92mmHg (MAR 12:) SpO2 95 % (MAR 12:) Weight 91.100 kg (MAR 12:) Height 162.56 cm (MAR 12:) Airway: Mallampati classification: II (soft palate, fauces, uvula visible). Temporomandibular joint mobility: Good. Mouth: Adequate opening, Teeth ( Within normal limits ). Neck: Full range of motion. Respiratory: Lungs are clear to auscultation. Cardiovascular: Regular rhythm. Neurologic: Alert, Oriented. Review / Management Laboratory Results Plan [place] Society of Anesthesiologists#(ASA) physical status classification: Class II. Anesthetic Preoperative Plan Anesthesia: General. . Anesthetic plan, risks, benefits, and alternatives discussed with the patient and/or family. Patient verbalized understanding. [Electronically Signed on: 03/12/2018 12:02 EDT] Guido Tomlin MD [Verified on: 03/12/2018 12:02 EDT] Guido Tomlin MDNoMercy Health Tiffin HospitalInpatient Patient Summaryon 03-12-2018 [place] [address] Patient Discharge Instructions Name: JOSE RODRIGUEZ : 65 Patient [address]: [address] [place] [address] Primary Care Provider: Name: ELEANOR ADAIR After you are discharged if you find you have any questions, please, call [phone] ext [phone] to speak to a nurse. Discharge Diagnosis: [...] business decisions or sign any legal documents [facility] would like to thank you for allowing us to assist you with your healthcare needs.The following includes patient education materials and information regarding your injury/illness. JOSE RODRIGUEZ has been given the following list of follow-up instructions, prescriptions, and patient education materials: Follow-up Instructions With: Address: When: RAFAELA MATIAS [address] [facility] [address] [place] [address] Business (1) 03/22/2018 1:30 PM With: Address: When: ELEANOR ADAIR [address] [place] [address] [place] [address] Business (1) Medications During the course of your visit, your medication list was updated with the most current information. The details of those changes are reflected below: Medications to Continue That Have Not Changed Other Medications acetaminophen-oxycodone (Percocet 5/325 oral tablet) 2 tab(s) Oral Every 4 hours as needed for pain. ALPRAZolam (Xanax 0.25 mg oral tablet) 1 tab(s) Oral 3 times a day as needed for anxiety. ascorbic acid/chondroitin/glucosa/javier (Glucosamine Chondroitin oral capsule) 1 tab(s) Oral 2 times a day. etodolac (etodolac 500 mg oral tablet) 1 tab(s) Oral 2 times a day. linaclotide (Linzess 290 mcg oral capsule) 1 tab(s) Oral every day. omega-3 polyunsaturated fatty acids ([place]-3 oral capsule) 1 tab(s) Oral every day. zinc sulfate (Zinc-220 oral capsule) 1 cap Oral every day. It is important to always keep an active list of medications available so that you can share with other providers and manage your medications appropriately. As an additional courtesy, we are also providing you with your final active medications list that you can keep with you. acetaminophen-oxycodone (Percocet 5/325 oral tablet) 2 tab(s) Oral Every 4 hours as needed for pain., home going medication, patient instructed to take 1 to 2 tabs every 4 to 6 hours as needed for pain ALPRAZolam (Xanax 0.25 mg oral tablet) 1 tab(s) Oral 3 times a day as needed for anxiety. ascorbic acid/chondroitin/glucosa/javier (Glucosamine Chondroitin oral capsule) 1 tab(s) Oral 2 times a day. etodolac (etodolac 500 mg oral tablet) 1 tab(s) Oral 2 times a day. linaclotide (Linzess 290 mcg oral capsule) 1 tab(s) Oral every day. omega-3 polyunsaturated fatty acids ([place]-3 oral capsule) 1 tab(s) Oral every day. 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 Name: JOSE RODRIGUEZ/Sex: 1965 FEMALE Med Rec #: [id number] Physician: Tod Giordano DO Financial #: [id number] Pt. 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 Record Time In 03/12/18 12:12:00 03/12/18 12:12:00 03/12/18 12:12:00 Time Out 03/12/18 14:18:00 03/12/18 14:18:00 03/12/18 14:18:00 Procedure Arthroplasty Finger Arthroplasty Finger Arthroplasty Finger PIP(Right) PIP(Right) PIP(Right) Last Modified By: Kavitha Cast RN, Stephanie RN Sauer, Stephanie RN 03/12/18 14:44:24 03/12/18 14:44:24 03/12/18 14:44:24 Entry 4 Entry 5 Case Attendee David Houser Liberty G Regina CST Role Performed Foreign Agent Scrub Personnel Time In 03/12/18 12:12:00 03/12/18 [...] Primary Procedure Yes Primary Surgeon Tod Giordano Right Alec PARRISH Surgeon Comment RIGHT CARPAL [...] Performs skin preparation Im.270.1 Implements protective measures toprevent skin and tissue injury due to chemical [...] regulation A.40 Verifies presence of prosthetics or correctivedevices Im.280 Implements thermoregulation measures Im.60 Uses supplies [...] Signatures Signed By: Kavitha Cast RN 03/12/18 15:00[facility] PACU Recordon 32-24-9214NTAA PACU RecordMAGR PACU Record Summary Primary Physician: Tod Giordano DO Finalized Date/Time: 03/12/18 14:46:19 Pt. Name: JOSE RODRIGUEZ/Sex: 1965 FEMALE Med Rec #: [id number] Physician: Tod Giordano DO Financial #: [id number] Pt. Type: D Room/Bed: / Admit/Disch: 03/12/18 09:28:40 - Institution: PACU Case Times MAGR Entry 1 In PACU I 03/12/18 14:18:00 Discharge from PACU 03/12/18 14:44:00 I Last Modified By: Romi Davidson RN 03/12/18 14:46:12 Finalized By: Romi Davidson RN Document Signatures Signed By: Romi Davidson RN 03/12/18 14:46[facility] Postoperative Record on 60-91-3043OMMS Postoperative RecordMAGR Phase II Record Summary Primary Physician: Tod Giordano DO Finalized Date/Time: 03/12/18 15:42:08 Pt. Name: JOSE RODRIGUEZO.B./Sex: 1965 FEMALE Med Rec #: [id number] Physician: Tod Giordano DO Financial #: [id number] Pt. Type: D Room/Bed: / Admit/Disch: 03/12/18 09:28:40 - Institution: Phase II Case Times MAGR Pre-Care Text: Patient is free from s/s of injury. Patient remains free from compromised physical state related tosurgery or anesthesia. Patient comfort maintained. Patient/family verbalize [...] Signatures Signed By: Romi Davidson RN 03/12/18 15:42[facility] Preoperative Recordon 66-03-4607NQVP Preoperative RecordMA Pre-Op Record Summary Primary Physician: Tod Giordano DO Finalized Date/Time: 03/12/18 14:22:43 Pt. Name: JOSE RODRIGUEZ/Sex: 1965 FEMALE Med Rec #: [id number] Physician: Tod Giordano DO Financial #: [id number] Pt. Type: D Room/Bed: / Admit/Disch: 03/12/18 [...] ready for surgery. The patient remains free froms/s of injury. Patient/family express understanding of plan of care and participate in decisions affectinghis or her perioperrative plan of care. Allergies documented appropriately. Patient identifiers and consent correct. General Comments: Denies chest pain, shortness of breath or illnessess. Denies pacemaker/defib. States history of sleep apnea, uses a c-pap. Did not bring in c-pap today. Finalized By: Romi Davidson RN Document Signatures Signed By: Romi Davidson RN 03/12/18 14:22[facility] HospitalOperative Report - Surgeon/Physicianon 29-34-7873Bvftgklck Report - Surgeon/PhysicianPreoperative diagnosis: Arthritis/degenerative joint disease carpometacarpal joint right [...] base of the thumb and erosive changes onthe articular surface Procedure summary: Patient was brought [...] care was taken to identify and protect theradial artery. There is several venous structures traversing [...] Subcutaneous layers were closed with 20 Vicryls suture.Skin was closed with 4-0 nylon suture. Bacitracin Adaptic and sterile dressings were applied followed by a radial plaster splint [Electronically Signed on: 03/12/2018 14:42 EDT] Tod Giordano DO [Verified on: 03/12/2018 14:42 EDT] Tod Giordano [facility] Encounters Encounter DateEncounter TypeCare ProviderFacilityStart: 01-13-2025 End: 23-76-1569Gdgncc flowsheetAlisandie BLACKWELL Work Phone: [facility] DERMStart: 01-13-2025 End: 81-95-1563Wvkafu flowsheetAlisandie BLACKWELL Work Phone: [facility] DERMStart: 01-13-2025 End: 66-66-0365vthcgtgqzuGKGMSF James Saab AvailableStart: 01-13-2025 End: 97-13-1137Iiasrk outpatient new 30 minutesAlisandie BLACKWELL Work Phone: [facility] DERMComment on above:Seborrheic keratosis (Primary Dx); Melanocytic nevus of trunk; Yoo angioma; Dermatofibroma of left lower extremity; Notalgia paresthetica; Other seborrheic dermatitisStart: 10-25-2022 End: 95-44-4047dehfmfgptxQM ELEANOR HOY .Facility:F8Ylpnn: 92-60-2290zdnqdylpcm Jono Perezcility:[facility] Hospitaltart: 43-77-5858Iiupwkdno for general adult medical examination without abnormal findingsDR ELEANOR HOY .The [facility] Hospitaltart: 08-26-2022 End: 59-50-6958cpkekoafngLI ELEANOR HOY .Facility:X7Gobbd: 08-26-2022 End: 54-66-9757Vlhvmrttj for general adult medical examination without abnormal findingsDR ELEANOR HOY .Facility: Plan of Treatment DateCare ActivityDetailAuthorStart: 01-13-2026 End: 61-87-6702Qemufwr encounter cyccxvoue58/16/2026 11:00 AM EDT Office Visit [facility] [address] [place] [address] Maegan Lee, RISHI [address] [place], [place] [id number] [facility] Payers DatePayer CategoryPayerPolicy [id number] [place] [id number] [id number] [id number] [id number] Social History DateTypeDetailFacilityTobacco smoking status NHISTobacco smoking consumption unknownNOMS HealthcareStart: 28-96-9054Gge assigned at birthFemalMountainStar Healthcare HealthcareStart: 59-77-7343Rjibov identityIdentifies as female gender (finding) [facility] HealthcareStart: 36-52-7030Zxswaz orientationHeterosexual (finding)[facility] HealthcareStart: 02-44-7732Gbiyzhp smoking status NHISNever smoked tobaccoNOMA HealthcareStart: 44-28-5667Ytgqxgc use and exposureSmokeless tobacco non-user [facility] HealthcareStart: 24-63-6083Ktbcpxc of Social functionNOMA HealthcareStart: 98-34-9214Hqukjzu use panelMOUNTAINSTAR HEALTHCARE Healthcare History of Present illness Narrative 01-13-2025 Note Date & YmhqZwxnWilwobgm99-12-2876 History of Present illness Narrative* RISHI Delaney - 01/13/2025 10:50 AM EDT Images from the original note were not included. 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 General Exam: alert, oriented to person, place, and time, normal affect, well appearing Unaccompanied Scalp, Examined Right leg Examined Head, Face Examined Left leg Examined Neck Examined Right foot Examined Chest Examined off Left foot Examined Back Examined Buttocks Examined Patient kept underwear on Abdomen Examined Digits,nails: Examined Right arm Examined Patient wearing nail czech, Denies dark streaks under finger nails Left arm Examined Lymphatics: Not examined Hands Examined Skin Exam 1. SEBORRHEIC KERATOSIS Generalized Stuck on verrucous, variably pigmented papules and plaques. Patient was counseled regarding these benign growths. Removal is normally not necessary, but they may be removed if they are symptomatic or for cosmetic reasons. 2. MELANOCYTIC NEVUS OF TRUNK Generalized Scattered benign appearing, regular brown to light brown melanocytic papules and macules with similar morphology Counseled regarding these benign growths. Rarely, a nevus can develop into malignant melanoma, so any changing nevi should be promptly re-evaluated. 3. YOO ANGIOMA Generalized Scattered yoo-red papule(s). The patient was informed that angiomas are benign growths on the the skin. No treatment is necessary. 4. DERMATOFIBROMA OF LEFT LOWER EXTREMITY Left Lower Leg - Anterior Firm brown papule that dimples with lateral pressure. Discussed that these are benign scars on the skin. If lesion is changing/symptomatic, return to office to have lesion re-evaluated 5. NOTALGIA PARESTHETICA Left Upper Back Skin appears normal in areas of itching. The patient was informed that notalgia paresthetica is a chronic itching, burning, or tingling sensation in the areas of skin just below the shoulder blade on either side of the back. The affected skin may appear normal or show changes from chronic scratching. It was explained that this is caused by nerve changes or damage in the local nerves, usually from arthritis or minor injury. The patient was informed that treatment is difficult and often ineffective. Treatment options were discussed including cooling lotions/icing the area. 6. OTHER SEBORRHEIC DERMATITIS Left Ear, Right Ear, Right Preauricular Area Erythema and scale. Flaring today Discussed that seborrheic dermatitis is a chronic condition that can be controlled but not cured. Start TAC 0.025% cream BID PRN for flares, counseled on proper use of prescribed. Notify office if flaring despite treatment. 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 Okay to use 5 days on and 2 days off Next Visit: [facility] Note Date & TypeNoteFacilityEvaluation note* Diagnosis Seborrheic keratosis- Primary Melanocytic nevus of trunk Benign neoplasm of skin of trunk, except scrotum Yoo angioma Dermatofibroma of left lower extremity Notalgia paresthetica Disturbance of skin sensation Other seborrheic dermatitis documented in this encounter [facility] Summary Purpose Family History No Family History Records FoundNo Family History Records FoundNo Family History Records FoundNo Family History Records Found Advance Directives No Advanced Directives Records FoundNo Advanced Directives Records FoundNo Advanced Directives Records FoundNo Advanced Directives Records Found Hospital Course Note [facility] Clinical Discharge Summary PERSON INFORMATION Name JOSE RODRIGUEZ Age 52 Years 65 Sex FEMALE Language [place] PCP ELEANOR ADAIR Marital Status Med Service Ambulatory Surgery N 13-10-24 Acct# Arrival 03/12/18 09:28:40 Visit Reason RIGHT CARPAL METACARPAL ARTHROPLASTY Acuity LOS 049 01:28 Address: [address] [place] [address] Comment: PROVIDER INFORMATION VITALS INFORMATION Vital Sign [...] content not included)... Note Patient: JOSE RODRIGUEZ Misael RN: 13-10-24 Age: 52 years Sex: FEMALE : 65 Associated Diagnoses: None Author: Guido Tomlin MD Postoperative Information Post Operative Note: Operative Day. Anesthetic utilized: General. Health Status Allergies: Allergic Reactions (All) Severity Not Documented Viibryd- Tachycardia. Problem list (past medical history): All Problems Zinc deficiency disease / SNOMED CT 308032165 / Confirmed GERD (gastroesophageal reflux disease) / SNOMED CT 671164248 / Confirmed Hiatal hernia / SNOMED CT 589874647 / Confirmed IBS (irritable bowel syndrome) / SNOMED CT 30014616 / Confirmed Sleep apnea / SNOMED CT 949549067 / Confirmed Physical Examination VS/Measurements Vital Signs (last 24 hrs) Last Charted Heart Rate Peripheral 77 bpm (MAR 12:) Resp Rate 0 br/min (MAR 12:) SBP 161 mmHg (MAR 12:) DBP 102 mmHg (MAR 12:) SpO2 92 % (MAR 12:) Weight 91.100 kg (MAR 12:) Height 162.56 cm (MAR 12:) Review / (more content not included)... Procedure Findings Note Patient: ASHKANMEGANJOSE James Douglas RN: [id number]- Age: 52 years Sex: FEMALE : 65 Associated Diagnoses: None Author: Guido Tomlin MD Postoperative Information Post Operative Note: Operative Day. Anesthetic utilized: General. Health Status Allergies: Allergic Reactions (All) Severity Not Documented Viibryd- Tachycardia. Problem list (past medical history): All Problems Zinc deficiency disease / SNOMED CT 698066215 / Confirmed GERD (gastroesophageal reflux disease) / SNOMED CT 422440006 / Confirmed Hiatal hernia / SNOMED CT 180825127 / Confirmed IBS (irritable bowel syndrome) / SNOMED CT 16408650 / Confirmed Sleep apnea / SNOMED CT 128624284 / Confirmed Physical Examination VS/Measurements Vital Signs (last 24 hrs) Last Charted Heart Rate Peripheral 77 bpm (MAR 12:) Resp Rate 0 br/min (MAR 12:) SBP 161 mmHg (MAR 12:14) DBP 102 mmHg (MAR 12:14) SpO2 92 % (MAR 12:15) Weight 91.100 kg (MAR 12:00) Height 162.56 cm (AUG 13 10:00) Review / (more content not included)... Additional Source Comments INFORMATION SOURCE (unrecogn ized section and content) DATE CREATED AUTHOR 03/09/2019 [facility] DATE CREATED AUTHOR AUTHOR'S ORGANIZ ATION 09/16/2022 [facility] DATE CREATED AUTHOR AUTHOR'S ORGANIZ ATION 12/02/2022 [facility] DATE CREATED AUTHOR AUTHOR'S ORGANIZ ATION 01/15/2025 [facility] EPIC Reason for Visit (unrecogniz ed section and content) ReasonCommentsSkin Check FOR RECORDS PERTAINING TO PATIENTS WHO ARE [...] BE BASED ON THE PRIMARY CLINICAL RECORDS. [employer] provides no warranty or guarantee of the accuracy or completeness of information in this document.
[2025-06-18 12:49] LABS: Hematocrit 41.0 % (36.0-48.0); Hemoglobin 13.4 g/dL (12.0-16.0); Immature Granulocytes Abs Auto 0.02 10^3/uL (0.00-0.03); Immature Granulocytes Pct Auto 0.4 % (0.0-0.5); Lymphocytes Absolute Auto 2.2 10^3/uL (1.2-3.8); Mean Corpuscular HGB Conc 32.7 g/dL (29.9-35.2); Mean Corpuscular Hemoglobin 32.7 pg (26.7-34.0); Mean Corpuscular Volume 100.0 fL (81.0-99.0); Platelet Count 328 10^3/uL (150-450); Red Blood Count 4.10 10^6/uL (4.20-5.40); White Blood Count 5.5 10^3/uL (4.0-11.0)
[2025-06-18 13:11] LABS: Iron 126.0 ug/dL (50.0-170.0)
[2025-06-18 13:20] LABS: Alanine Aminotransferase 27 U/L (14-59); Albumin Globulin Ratio 1.1; Albumin Level 3.8 g/dL (3.4-5.0); Alkaline Phosphatase 58 U/L (46-116); Anion Gap 10.2; Aspartate Amino Transferase 13 U/L (15-37); Blood Urea Nitrogen 12.0 mg/dL (7.0-18.0); Calcium 9.0 mg/dL (8.5-10.1); Carbon Dioxide 28.8 mmol/L (21.0-32.0); Chloride 108 mmol/L (98-107); Cholesterol 189 mg/dL (<=200); Estimated GFR (African America >60 (>=60 mL/min/1.73m^2); Estimated GFR (Non-African Ame >60 (>=60 mL/min/1.73m^2); Free T3 2.89 pg/mL (2.18-3.98); Globulin 3.4 g/dL; Glucose 97 mg/dL (74-106); HDL Cholesterol 83 mg/dL (40-60); Potassium 4.0 mmol/L (3.5-5.1); Sodium 143 mmol/L (136-145); Thyroid Stimulating Hormone 2.759 uIU/mL (0.358-3.740); Total Protein 7.2 g/dL (6.4-8.2); Triglycerides 89 mg/dL (<=150); VLDL CHOLESTEROL 17.8 mg/dL
== END 2025-06-18 12:07 | disposition home or self-care (01) ==
PROVIDERS: PCP Family Medicine; Visit Provider Family Medicine
DX: Z00.00 Encounter for general adult medical examination without abnormal findings (principal); E78.5 Hyperlipidemia, unspecified; R73.09 Other abnormal glucose; D64.9 Anemia, unspecified; E03.9 Hypothyroidism, unspecified; E55.9 Vitamin D deficiency, unspecified; I10 Essential (primary) hypertension; D50.9 Iron deficiency anemia, unspecified
CPT/HCPCS: 36415; 80053; 80061; 82306; 83036; 83525; 83540; 84436; 84443; 84481; 85025